=== PATIENT | male | born 1980 | race Caucasian/White ===

== ENCOUNTER 2023-11-23 12:14 | Emergency (ER) | payer SELFPAY ==
[2023-11-23 12:17] VITALS: BP 162/99
--- NOTE | 2023-11-23 12:50 | ED.GENMED ---
History of Present Illness
General
Chief Complaint: Prescription Refill
Source: patient
Exam Limitations: none
Time Seen by Provider: 11/23/23 12:41
Travel History
Have you had any contact with someone who has COVID-19?: No
Do you have any symptoms of coronavirus? Fever > 100 degrees, chills, cough, shortness of breath, sore throat, loss of taste or smell, muscle aches, or headache?: No
History of Present Illness
History of Present Illness:
See MDM
Past History
Past History
ED Past Medical History: Seizures
ED Past Surgical History: None
Social History
Tobacco: Non-smoker
Alcohol: None
Phy Exam
Physical Exam
Physical Exam:
See MDM
Course
Vital Signs
Initial and Last Documented VS:
Initial Vital Signs
Temp Pulse Resp BP Pulse Ox
98.9 F 99 16 162/99 98
11/23/23 12:17 11/23/23 12:17 11/23/23 12:17 11/23/23 12:17 11/23/23 12:17
Last Documented Vital Signs
Temp Pulse Resp BP Pulse Ox
98.9 F 99 16 162/99 98
11/23/23 12:17 11/23/23 12:17 11/23/23 12:17 11/23/23 12:17 11/23/23 12:17
MDM/Problems Addressed
Differential Diagnosis Includes:
HPI and MDM Narrative:
42-year-old male presenting for refill of his Klonopin and Depakote. Patient states he still has some pills left of each prescription but is running out soon. He called his primary care doctor who sent him into the emergency department. Patient
states he no longer has insurance
I did look up his information on the PDMP. He did fill 90 pills of Klonopin 26 days ago. It was a 30-day prescription. I discussed with patient that I can write a few more pills but this needs to be prescribed by his doctors.
Physical exam
General: Well appearing and non-toxic
HEENT: protecting airway
Neck: appears supple
CV: No evidence of cyanosis
Resp: No accessory muscle use
Abd: Non-distended
Extremities: No deformities
Neuro: alert
Psych: Normal affect
Skin: Intact
Problems Addressed including Acute and Chronic Conditions affecting care:
1. Medication refill
Acuity: acute
Prognosis: stable
Details: Will write for a 1 week more of Klonobethany and Depakosarbjit but discussed his chronic medications need to be filled by this provider. Since patient states he no longer has insurance, will refer to the [facility]
Differential Diagnosis (but not limited to): Anxiety, medication review
Testing considered: Blood work
Drug therapy (if applicable): OTC meds, please see d/c instruction regarding Rx drugs
Amount and/or Complexity of Data Reviewed
Clinical info obtained from: Patient
External data reviewed: N/A
Labs I independently reviewed (but not limited to): N/A
Radiology: N/A
Pulse Ox: not hypoxic
EKG independently reviewed: N/A
Industrial Conveyor Belt Repairer: N/A
Critical Care: N/A
Risk of Complication:
Social Determinants of health: Good social support
Discussed with other providers: N/A
Escalation of Care includes Admit/Obs: After being observed in the Emergency Department, pt stable for discharge.
Occasional wrong word or 'sound a like' substitutions may have occurred due to the inherent limitations of voice recognition software. Read the chart carefully and recognize, using context, where substitutions have occurred.
*Critical Care Note
Total Time (30-74mins, 75-104mins- exclusive of procedures): Not Applicable
ED Attending Note
-
Portions of this chart may have been created with voice recognition software.� Occasional wrong word or��sound alike� substitutions may have occurred due to the inherent limitations of voice recognition software.
Discharge Plan
Departure
Patient Disposition: Home (Routine Discharge)
Date of Disposition: 11/23/23
Time of Disposition: 12:55
Patient with high blood pressure during this ER visit?: Yes
Discharge Problem:
Medication refill
Instructions: BLOOD PRESSURE
Prescriptions:
New
clonazepam [Klonopin] 1 mg tablet
1.5 mg PO BID 7 Days Qty: 21 0RF
divalproex [Depakote ER] 500 mg tablet extended release 24 hr
500 mg PO DAILY 14 Days Qty: 14 0RF
Referrals:
[facility] [Outside]
NONE,* [Family Provider] -
Activity Restrictions/Additional Instructions:
Your chronic medication should be filled by your doctor. If your doctor cannot see you and you do not have insurance, please follow-up with the clinic.
Interventions
Interventions:
*ED COVID-19 Vaccine History Last Done: 11/23/23 12:17
Discharge Date and Time
Print Language: ICELANDIC
[2023-11-23 13:18] VITALS: BP 149/94
== END 2023-11-23 13:20 | disposition home or self-care (01) ==
LOC: EMR 12:14
PROVIDERS: EMERGENCY PHYSICIAN Student in an Organized Health Care Education/Training Program
DX: Z76.0 Encounter for issue of repeat prescription (principal); R03.0 Elevated blood-pressure reading, without diagnosis of hypertension
CPT/HCPCS: 99283

== ENCOUNTER 2024-03-16 16:59 | Emergency (ER) | payer SELFPAY ==
[2024-03-16 17:02] VITALS: BP 151/96; BMI 18.9
[2024-03-16 18:00] VITALS: BP 137/96
--- NOTE | 2024-03-16 18:14 | ED.GENMED ---
History of Present Illness
General
Chief Complaint: Anxiety
Source: patient
Time Seen by Provider: 03/16/24 18:02
History of Present Illness
History of Present Illness:
43-year-old male with past medical history of seizure disorder presenting to the emergency department for evaluation after he was recently released from group home last night but did not have any of his medications and was afraid that if he went without
his medications can potentially have a seizure. He is also stating that he had a seizure 2 days ago and is requesting some Tylenol for some generalized aches and pains. He denies any fevers or infectious symptoms. He notes that he does have
prescription at home for Trileptal and Depakote but due to an issue at his pharmacy was unable to these prescriptions today but state was told he can tomorrow. He states that he does not have a Klonopin prescription due to the loss of insurance but
is scheduled to see his doctor at the medical clinic within the coming week. He has no physical concerns at this time other than the generalized achiness.
Past History
Past History
ED Past Medical History: Seizures and Psychiatric
ED Past Surgical History: Orthopedic
Social History
Tobacco: Non-smoker
Alcohol: None
Drug: None
Personal: Partner
Living: with family
Employment: Not employed
Review of Systems
Review of Systems
All Other Systems: ROS reviewed and negative except as documented in HPI and ROS
Phy Exam
Physical Exam
Physical Exam:
GENERAL: Alert , in no apparent distress
EYE: conjunctiva clear
Head: Normocephalic atraumatic
NECK: Supple,
ENT: mmm.
LUNGS: no acute respiratory distress
NEUROLOGICAL: Alert and oriented
SKIN: Warm and dry, skin intact.
MUSCULOSKELETAL: well perfused.
PSYCH: Normal and appropriate interaction.
Scores
Heart Failure Risk
Heart Failure Risk Score: Not Applicable
Heart Score for Chest Pain Patients
STEMI patient?: Not applicable
Withdrawal Assessment of Alcohol
Withdrawal Assessment Completed?: Not applicable
Course
Orders/Labs/Results
Orders:
Orders
03/16/24 18:11
Acetaminophen [Tylenol] 650 mg PO NOW STA
Clonazepam [Klonopin] 0.5 mg PO NOW STA
Clonazepam [Klonopin] 1 mg PO NOW STA
03/16/24 18:21
Oxcarbazepine [Trileptal] 600 mg PO NOW STA
03/16/24 18:22
Divalproex Delayed Rel. 12 Hr [Depakote (12 Hr Release)] 500 mg PO NOW STA
Vital Signs
Initial and Last Documented VS:
Initial Vital Signs
Temp Pulse Resp BP Pulse Ox
98.2 F 70 16 151/96 99
03/16/24 17:02 03/16/24 17:02 03/16/24 17:02 03/16/24 17:02 03/16/24 17:02
Last Documented Vital Signs
Temp Pulse Resp BP Pulse Ox
98.2 F 60 16 137/96 100
03/16/24 17:02 03/16/24 18:00 03/16/24 18:00 03/16/24 18:00 03/16/24 18:00
MDM/Problems Addressed
MDM/Problems Addressed:
Patient presenting to the emergency department to be evaluated after he has been unable to take his medications since yesterday evening at 8 PM. Released from group home after he was served an arrest warrant. He notes that he has a prescription for his
Trileptal and Depakote. Noting he needs a prescription for Klonopin. [place] PDMP was reviewed and shows he last had a prescription filled in October for Klonopin which was filled here at this facility. I explained the patient I can only give him enough
to get him through the weekend and he can contact his primary care provider on Tuesday for new prescription. Patient expressed understanding. He is otherwise stable for discharge home.
*Pulse Oximetry
Patient hypoxic: no
*Critical Care Note
Total Time (30-74mins, 75-104mins- exclusive of procedures): Not Applicable
Data Reviewed
Review of Other/Old Records Reveals: Records
ED Attending Note
-
Portions of this chart may have been created with voice recognition software.� Occasional wrong word or��sound alike� substitutions may have occurred due to the inherent limitations of voice recognition software.
Discharge Plan
Departure
Patient Disposition: Home (Routine Discharge)
Date of Disposition: 03/16/24
Time of Disposition: 18:14
Patient with high blood pressure during this ER visit?: Yes
Discharge Problem:
Prescription refill
Instructions: Where to Get Help Paying for Your Prescriptions
Prescriptions:
New
clonazepam [Klonopin] 1 mg tablet
1 mg PO BID 3 Days Qty: 6 0RF
clonazepam [Klonopin] 0.5 mg tablet
0.5 mg PO BID 3 Days Qty: 6 0RF
No Action
clonazepam [Klonopin] 1 mg tablet
1.5 mg PO BID 7 Days Qty: 21 0RF
divalproex [Depakote ER] 500 mg tablet extended release 24 hr
500 mg PO DAILY 14 Days Qty: 14 0RF
Referrals:
NONE,* [Family Provider] -
Interventions
Interventions:
*Risk Screen - Suicide Last Done: 03/16/24 17:02
*General Assessment Last Done: 03/16/24 17:02
*Neglect/Abuse Screening Last Done: 03/16/24 17:02
ED- Fall Risk Assessment Last Done: 03/16/24 17:02
*ED COVID-19 Vaccine History Last Done: 03/16/24 17:43
ED-Psychological Assessment Last Done: 03/16/24 17:02
Discharge Date and Time
Print Language: ZAMBIAN
[2024-03-16] MEDS: KLONOPIN 1 MG PO (18:17)
[2024-03-16] MEDS: TYLENOL 650 MG PO (18:17)
[2024-03-16] MEDS: KLONOPIN 0.5 MG PO (18:17)
[2024-03-16] MEDS: DEPAKOTE (12 HR RELEASE) 500 MG PO (18:30)
[2024-03-16] MEDS: TRILEPTAL 600 MG PO (18:30)
== END 2024-03-16 18:30 | disposition home or self-care (01) ==
LOC: EMR 16:59
PROVIDERS: EMERGENCY PHYSICIAN Emergency Medicine
DX: Z76.0 Encounter for issue of repeat prescription (principal); G40.909 Epilepsy, unspecified, not intractable, without status epilepticus; F41.9 Anxiety disorder, unspecified; R03.0 Elevated blood-pressure reading, without diagnosis of hypertension
CPT/HCPCS: 99283

== ENCOUNTER 2024-05-10 12:11 | Emergency (ER) | payer OTHER, SELFPAY ==
[2024-05-10 12:13] VITALS: BP 167/110
[2024-05-10 12:39] VITALS: BMI 21.0
[2024-05-10 13:11] LABS: % Basophils 0.5 % (0-2); % Eosinophils 1.3 % (0-6); % Immature Granulocytes 0.4 % (0-0.5); % Lymphocytes 25.8 % (20.5-51.1); % Monocytes 7.3 % (1.7-9.3); % Neutrophils 64.7 % (42.2-75.2); Absolute Basophils 0.1 10^3/uL (0-0.2); Absolute Eosinophils 0.1 10^3/uL (0-0.7); Absolute Lymphocytes 2.4 10^3/uL (1.2-3.4); Absolute Monocytes 0.7 10^3/uL (0.1-0.6); Hematocrit 41.9 % (39.0-52.0); Hemoglobin 14.9 g/dL (13.0-18.0); Mean Corp Hgb Conc. 35.6 g/dL (33.0-37.0); Mean Corpuscular Hgb 35.1 pg (27.0-31.0); Mean Corpuscular Volume 98.8 fL (80.0-94.0); Mean Platelet Volume 9.6 fL (7.4-10.4); Nucleated Red Blood Cells % 0 % (-); Platelet Count 289 10^3/uL (130-400); Red Blood Cell Count 4.24 10^6/uL (4.70-6.10); Red Cell Dist. Width 12.5 % (11.5-14.5); White Blood Cell Count 9.3 10^3/uL (4.8-10.8)
--- NOTE | 2024-05-10 13:21 | ED.GENMED ---
History of Present Illness
General
Chief Complaint: Seizure
Source: patient
Exam Limitations: none
Time Seen by Provider: 05/10/24 12:39
History of Present Illness
History of Present Illness:
43-year-old male with history of epilepsy presents after having a seizure last evening. He states he is out of his medicine. He was here about a month ago for similar reasons. He is requesting information and help getting set up with the free
clinic. He does not currently have a neurologist. He used to live in [place] and recently moved here to this area. He has been taking Trileptal, Depakote and Klonopin for seizures. Last medicine was about 2 weeks ago. He denies any current
complaints other than fatigue. No other complaints
Past History
Past History
ED Past Medical History: Seizures and Psychiatric
ED Past Surgical History: Orthopedic
Social History
Tobacco: Non-smoker
Alcohol: None
Drug: None
Personal: Partner
Living: with family
Employment: Not employed
Phy Exam
Physical Exam
Physical Exam:
General: Well-appearing male no acute respiratory distress
HEENT: Normocephalic atraumatic no bite elizabeth to the tongue
Heart: Regular rate and rhythm no murmurs
Lungs: Clear no wheeze
Abdomen is soft nontender
Extremities: No cyanosis
Skin warm no rash
Course
Orders/Labs/Results
Orders:
Orders
05/10/24 12:49
CMP [Comprehensive Metabolic Panel] Urgent
Complete Blood Count/With Diff Urgent
Abnormal Lab Results
05/10/24
12:49
RBC 4.24 L 10^6/uL
(4.70-6.10)
MCV 98.8 H fL
(80.0-94.0)
MCH 35.1 H pg
(27.0-31.0)
Absolute Monos (auto) 0.7 H 10^3/uL
(0.1-0.6)
Creatinine 0.6 L mg/dL
(0.7-1.3)
Calcium 10.3 H mg/dl
(8.4-10.2)
Albumin 5.4 H g/dl
(3.5-5.0)
05/10/24 12:49
05/10/24 12:49
Vital Signs
Initial and Last Documented VS:
Initial Vital Signs
Temp Pulse Resp BP Pulse Ox
98.4 F 102 16 167/110 100
05/10/24 12:13 05/10/24 12:13 05/10/24 12:13 05/10/24 12:13 05/10/24 12:13
Last Documented Vital Signs
Temp Pulse Resp BP Pulse Ox
98.4 F 96 9 167/110 100
05/10/24 12:13 05/10/24 12:42 05/10/24 12:42 05/10/24 12:13 05/10/24 12:42
MDM/Problems Addressed
Differential Diagnosis Includes:
Patient had seizure last evening with history of seizures. He is out of his medication. He is in between doctors. Reviewed prior record. Will represcribe his Trileptal Depakote and give him a limited supply of Klonopin. Will set him up with the
free clinic. No indication for admission.
*Critical Care Note
Total Time (30-74mins, 75-104mins- exclusive of procedures): Not Applicable
Update Note
Update Note:
PDMP search does document the most recent prescription from February of this year from his visit here to this hospital. No other prescriptions of Klonopin have been provided.
ED Attending Note
-
Portions of this chart may have been created with voice recognition software.� Occasional wrong word or��sound alike� substitutions may have occurred due to the inherent limitations of voice recognition software.
Discharge Plan
Departure
Patient Disposition: Home (Routine Discharge)
Date of Disposition: 05/10/24
Time of Disposition: 13:43
Patient with high blood pressure during this ER visit?: No
Discharge Problem:
Seizure
Instructions: Seizures, Adult (DC)
Prescriptions:
New
divalproex [Depakote ER] 500 mg tablet extended release 24 hr
500 mg PO DAILY Qty: 14 0RF
oxcarbazepine [Trileptal] 600 mg tablet
600 mg PO BID Qty: 28 0RF
clonazepam [Klonopin] 1 mg tablet
1 mg PO BID Qty: 14 0RF
clonazepam [Klonopin] 0.5 mg tablet
0.5 mg PO BID Qty: 14 0RF
No Action
clonazepam [Klonopin] 1 mg tablet
1.5 mg PO BID 7 Days Qty: 21 0RF
divalproex [Depakote ER] 500 mg tablet extended release 24 hr
500 mg PO DAILY 14 Days Qty: 14 0RF
clonazepam [Klonopin] 1 mg tablet
1 mg PO BID 3 Days Qty: 6 0RF
clonazepam [Klonopin] 0.5 mg tablet
0.5 mg PO BID 3 Days Qty: 6 0RF
Referrals:
[facility] [Outside]
NONE,* [Family Provider] -
Activity Restrictions/Additional Instructions:
Please continue to seek treatment at the free [facility]. Return here if needed otherwise.
Interventions
Interventions:
*Risk Screen - Suicide Last Done: 05/10/24 12:39
*General Assessment Last Done: 05/10/24 12:39
*Neglect/Abuse Screening Last Done: 05/10/24 12:39
ED- Fall Risk Assessment Last Done: 05/10/24 12:39
*ED COVID-19 Vaccine History Last Done: 05/10/24 12:39
ED- Cardiac Assessment Last Done: 05/10/24 12:39
ED- Neurological Assessment Last Done: 05/10/24 12:39
ED- Pulmonary Assessment Last Done: 05/10/24 12:39
Discharge Date and Time
Print Language: TAJIK
[2024-05-10 13:27] LABS: ALT (SGPT) 13 U/L (0-50); AST (SGOT) 21 U/L (17-59); Albumin 5.4 g/dl (3.5-5.0); Alkaline Phosphatase 64 U/L (38-126); Blood Urea Nitrogen 14 mg/dl (9-20); Calcium 10.3 mg/dl (8.4-10.2); Carbon Dioxide 27 mmol/L (22-30); Chloride 100 mmol/L (98-107); Estimated Creatinine Clearance > 125 ml/min; Glucose 99 mg/dl (70-99); Potassium 4.5 mmol/L (3.5-5.1); Sodium 140 mmol/L (135-145); Total Bilirubin 0.5 mg/dl (0.2-1.3); Total Protein 7.9 g/dl (6.3-8.2); eGFR > 60.00
== END 2024-05-10 14:05 | disposition home or self-care (01) ==
LOC: EMR 12:11
PROVIDERS: Physician Assistant; EMERGENCY PHYSICIAN Emergency Medicine
DX: G40.909 Epilepsy, unspecified, not intractable, without status epilepticus (principal); Z76.0 Encounter for issue of repeat prescription
CPT/HCPCS: 99283; 80053; 85025

== ENCOUNTER 2024-05-11 21:31 | Emergency (ER) | payer OTHER, SELFPAY ==
[2024-05-11 21:36] VITALS: BP 136/81
[2024-05-11 21:54] LABS: % Basophils 0.4 % (0-2); % Eosinophils 1.8 % (0-6); % Immature Granulocytes 0.4 % (0-0.5); % Lymphocytes 30.7 % (20.5-51.1); % Monocytes 9.1 % (1.7-9.3); % Neutrophils 57.6 % (42.2-75.2); Absolute Eosinophils 0.2 10^3/uL (0-0.7); Absolute Lymphocytes 3.3 10^3/uL (1.2-3.4); Absolute Neutrophils 6.3 10^3/uL (1.4-6.5); Hematocrit 39.1 % (39.0-52.0); Hemoglobin 13.9 g/dL (13.0-18.0); Mean Corp Hgb Conc. 35.5 g/dL (33.0-37.0); Mean Corpuscular Hgb 33.8 pg (27.0-31.0); Mean Corpuscular Volume 95.1 fL (80.0-94.0); Mean Platelet Volume 9.4 fL (7.4-10.4); Nucleated Red Blood Cells % 0 % (-); Platelet Count 291 10^3/uL (130-400); Red Blood Cell Count 4.11 10^6/uL (4.70-6.10); Red Cell Dist. Width 12.5 % (11.5-14.5); White Blood Cell Count 10.9 10^3/uL (4.8-10.8)
[2024-05-11 22:08] LABS: Lactic Acid 2.1 mmol/L (0.7-2.0)
[2024-05-11 22:20] LABS: ALT (SGPT) 12 U/L (0-50); AST (SGOT) 19 U/L (17-59); Albumin 4.8 g/dl (3.5-5.0); Alkaline Phosphatase 66 U/L (38-126); Blood Urea Nitrogen 16 mg/dl (9-20); Calcium 9.9 mg/dl (8.4-10.2); Carbon Dioxide 28 mmol/L (22-30); Chloride 100 mmol/L (98-107); Glucose 94 mg/dl (70-99); Potassium 4.3 mmol/L (3.5-5.1); Sodium 138 mmol/L (135-145); Total Bilirubin 0.4 mg/dl (0.2-1.3); eGFR > 60.00
--- NOTE | 2024-05-11 23:05 | ED.GENMED ---
History of Present Illness
General
Chief Complaint: Facial Problem
Source: patient
Time Seen by Provider: 05/11/24 22:55
History of Present Illness
History of Present Illness:
43-year-old male with past medical history of seizure disorder, anxiety and depression presenting to the emergency department for evaluation of left-sided otalgia that began yesterday, worse today prompting him to come to the ER for further
evaluation. Patient notes that he was here yesterday with a breakthrough seizure, had been out of his epileptic medications due to a recent move and currently does not have a primary care doctor or neurologist to get new prescription filled.
Patient denies any fevers, chills, rigors. Denies any other URI-like symptoms. He notes it feels as if his left ear is 'about to explode'. He attempted to clean his left ear out with a little hydrogen peroxide but did not have any relief. Denies
any trauma to the affected area. No other concerns presently.
Past History
Past History
ED Past Medical History: Seizures and Psychiatric
ED Past Surgical History: Orthopedic
Social History
Tobacco: Non-smoker
Alcohol: None
Drug: None
Personal: Partner
Living: with family
Employment: Not employed
Review of Systems
Review of Systems
All Other Systems: ROS reviewed and negative except as documented in HPI and ROS
Phy Exam
Physical Exam
Physical Exam:
GENERAL: Alert , in no apparent distress
HEAD: NCAT
EYE: conjunctiva clear
NECK: Supple, enlarged preauricular and superficial cervical chain lymphadenopathy
ENT: o/p clr, mmm. Left otic canal is edematous but without any significant debris. What I can visualize of the TM is erythematous. Right ear no edema of the otic canal and TM is clear
CARDIAC: Regular rate and rhythm
LUNGS: Clear breath sounds bilaterally, no acute respiratory distress, no wheezes/rales/rhonchi
NEUROLOGICAL: Alert and oriented
SKIN: Warm and dry, skin intact.
MUSCULOSKELETAL: well perfused.
PSYCH: Normal and appropriate interaction.
Scores
Heart Failure Risk
Heart Failure Risk Score: Not Applicable
Heart Score for Chest Pain Patients
STEMI patient?: Not applicable
Withdrawal Assessment of Alcohol
Withdrawal Assessment Completed?: Not applicable
Course
Orders/Labs/Results
Orders:
Orders
05/11/24 21:45
Complete Blood Count/With Diff Urgent
Comprehensive Metabolic Panel Urgent
Lactic Acid Urgent
05/11/24 23:03
Amoxicillin [Amoxil] 500 mg PO NOW STA
Ibuprofen [Motrin] 600 mg PO NOW STA
Abnormal Lab Results
05/11/24
21:45
WBC 10.9 H 10^3/uL
(4.8-10.8)
RBC 4.11 L 10^6/uL
(4.70-6.10)
MCV 95.1 H fL
(80.0-94.0)
MCH 33.8 H pg
(27.0-31.0)
Absolute Monos (auto) 1.0 H 10^3/uL
(0.1-0.6)
Lactic Acid 2.1 H mmol/L
(0.7-2.0)
05/11/24 21:45
05/11/24 21:45
Vital Signs
Initial and Last Documented VS:
Initial Vital Signs
Temp Pulse Resp BP Pulse Ox
98.3 F 111 20 136/81 99
05/11/24 21:36 05/11/24 21:36 05/11/24 21:36 05/11/24 21:36 05/11/24 21:36
Last Documented Vital Signs
Temp Pulse Resp BP Pulse Ox
98.3 F 111 20 136/81 99
05/11/24 21:36 05/11/24 21:36 05/11/24 21:36 05/11/24 21:36 05/11/24 21:36
MDM/Problems Addressed
Differential Diagnosis Includes:
otitis media, otitis externa, mastoiditis, abscess
MDM/Problems Addressed:
43-year-old male presenting the emergency department for evaluation of left ear pain x 1 day. Was at this hospital yesterday with a breakthrough seizure because patient unfortunately did not have his antiepileptic medications. Here tonight patient
does have significant left-sided otic canal edema and left TM erythema. There is preauricular and anterior cervical chain lymphadenopathy. Labs were ordered in triage which reveals a leukocytosis. Patient also has a borderline elevated lactic
acid which could be related to patient's seizure disorder, could also be related to infection however patient not exhibiting any signs of sepsis. I do feel it is reasonable to treat patient's pain with NSAIDs. Will treat infection with amoxicillin
and Cortisporin drops. Advised on return precautions to the ER. Otherwise feels stable for discharge home. Patient currently does not have a primary care provider so we will provide with information for the medical clinic
*Pulse Oximetry
Patient hypoxic: no
*Critical Care Note
Total Time (30-74mins, 75-104mins- exclusive of procedures): Not Applicable
Data Reviewed
Review of Other/Old Records Reveals: Records
ED Attending Note
-
Portions of this chart may have been created with voice recognition software.� Occasional wrong word or��sound alike� substitutions may have occurred due to the inherent limitations of voice recognition software.
Discharge Plan
Departure
Patient Disposition: Home (Routine Discharge)
Date of Disposition: 05/11/24
Time of Disposition: 23:05
Patient with high blood pressure during this ER visit?: No
Discharge Problem:
Otitis media, Otitis externa
Instructions: Ear Infections in Adults (DC)
Prescriptions:
New
amoxicillin 500 mg tablet
500 mg PO BID 10 Days Qty: 20 0RF
Cortisporin-TC 3.3-3-10-0.5 mg/mL drops,suspension
4 drp otic (ear) TID 7 Days Qty: 10 0RF
No Action
clonazepam [Klonopin] 1 mg tablet
1.5 mg PO BID 7 Days Qty: 21 0RF
divalproex [Depakote ER] 500 mg tablet extended release 24 hr
500 mg PO DAILY 14 Days Qty: 14 0RF
clonazepam [Klonopin] 1 mg tablet
1 mg PO BID 3 Days Qty: 6 0RF
clonazepam [Klonopin] 0.5 mg tablet
0.5 mg PO BID 3 Days Qty: 6 0RF
divalproex [Depakote ER] 500 mg tablet extended release 24 hr
500 mg PO DAILY Qty: 14 0RF
oxcarbazepine [Trileptal] 600 mg tablet
600 mg PO BID Qty: 28 0RF
clonazepam [Klonopin] 1 mg tablet
1 mg PO BID Qty: 14 0RF
clonazepam [Klonopin] 0.5 mg tablet
0.5 mg PO BID Qty: 14 0RF
Referrals:
[facility] [Outside]
NONE,* [Family Provider] -
Interventions
Interventions:
*Risk Screen - Suicide Last Done: 05/11/24 22:55
*General Assessment Last Done: 05/11/24 21:36
*Neglect/Abuse Screening Last Done: 05/11/24 22:55
*ED COVID-19 Vaccine History Last Done: 05/11/24 22:55
*Nursing Disposition Last Done: 05/11/24 23:23
ED- Neurological Assessment Last Done: 05/11/24 22:55
ED-Skin Assessment Last Done: 05/11/24 22:55
Discharge Date and Time
Discharge Date/Time: 05/11/24 23:24
Print Language: MOROCCAN
[2024-05-11] MEDS: MOTRIN 600 MG PO (23:15)
[2024-05-11] MEDS: AMOXIL 500 MG PO (23:16)
== END 2024-05-11 23:24 | disposition home or self-care (01) ==
LOC: EMR 21:31
PROVIDERS: Emergency Medicine; EMERGENCY PHYSICIAN Emergency Medicine
DX: H66.92 Otitis media, unspecified, left ear (principal); H60.502 Unspecified acute noninfective otitis externa, left ear; R59.0 Localized enlarged lymph nodes; G40.909 Epilepsy, unspecified, not intractable, without status epilepticus; F41.9 Anxiety disorder, unspecified; F32.A Depression, unspecified; Z88.8 Allergy status to other drugs, medicaments and biological substances
CPT/HCPCS: 99283; 80053; 83605; 85025

== ENCOUNTER 2024-05-15 05:34 | Emergency (ER) | payer OTHER, SELFPAY ==
[2024-05-15 05:36] VITALS: BP 158/100
[2024-05-15 05:52] VITALS: BMI 21.9
[2024-05-15 06:01] VITALS: BP 140/98
[2024-05-15 06:37] VITALS: BP 127/97
[2024-05-15 06:52] LABS: % Basophils 0.5 % (0-2); % Eosinophils 2.1 % (0-6); % Immature Granulocytes 0.4 % (0-0.5); % Lymphocytes 20.2 % (20.5-51.1); % Monocytes 6.9 % (1.7-9.3); % Neutrophils 69.9 % (42.2-75.2); Absolute Eosinophils 0.2 10^3/uL (0-0.7); Absolute Lymphocytes 1.6 10^3/uL (1.2-3.4); Absolute Monocytes 0.6 10^3/uL (0.1-0.6); Absolute Neutrophils 5.7 10^3/uL (1.4-6.5); Hematocrit 36.7 % (39.0-52.0); Hemoglobin 12.9 g/dL (13.0-18.0); Mean Corp Hgb Conc. 35.1 g/dL (33.0-37.0); Mean Corpuscular Hgb 33.5 pg (27.0-31.0); Mean Corpuscular Volume 95.3 fL (80.0-94.0); Mean Platelet Volume 9.3 fL (7.4-10.4); Nucleated Red Blood Cells % 0 % (-); Platelet Count 252 10^3/uL (130-400); Red Blood Cell Count 3.85 10^6/uL (4.70-6.10); Red Cell Dist. Width 12.6 % (11.5-14.5); White Blood Cell Count 8.1 10^3/uL (4.8-10.8)
[2024-05-15 07:00] VITALS: BP 138/100
[2024-05-15 07:04] LABS: Lactic Acid 1.8 mmol/L (0.7-2.0)
[2024-05-15 07:05] LABS: ALT (SGPT) 13 U/L (0-50); AST (SGOT) 19 U/L (17-59); Albumin 4.4 g/dl (3.5-5.0); Alkaline Phosphatase 66 U/L (38-126); Blood Urea Nitrogen 9 mg/dl (9-20); Calcium 9.6 mg/dl (8.4-10.2); Carbon Dioxide 24 mmol/L (22-30); Chloride 106 mmol/L (98-107); Creatine Phosphokinase 115 U/L (55-170); Estimated Creatinine Clearance > 125 ml/min; Glucose 116 mg/dl (70-99); Potassium 3.9 mmol/L (3.5-5.1); Sodium 140 mmol/L (135-145); Total Bilirubin 0.3 mg/dl (0.2-1.3); Total Protein 6.5 g/dl (6.3-8.2); eGFR > 60.00
[2024-05-15 07:06] LABS: Alcohol None Detected
[2024-05-15 07:09] LABS: Depakane < 10.0 ug/ml (50.0-120.0)
[2024-05-15] MEDS: NSS 1000 IV (07:23)
--- NOTE | 2024-05-15 07:24 | ED.GENMED ---
History of Present Illness
General
Chief Complaint: Seizure
Source: patient
Exam Limitations: none
Time Seen by Provider: 05/15/24 06:06
Nursing documentation reviewed up to this point in time: agreed with
History of Present Illness
History of Present Illness:
43-year-old male with a past medical history of epilepsy and anxiety who presents to the emergency room after 2 apparent witnessed seizures. Patient says that he tends to have his seizures when he is sleeping. He says that his girlfriend told him
that he had to tonic-clonic seizures last night 1 at 230 that was brief and resolved and then another at 3 AM. He was apparently quite confused/postictal after these episodes�he says that his girlfriend told him that he was confused to the point
that he was eating soap in the bathroom. He says that he has had a long history of seizures and so he did not immediately call EMS to bring her to the hospital but waited until he was more awake and that took an Uber to the hospital. He says that
he feels lethargic still and he has generalized bodyaches but denies any other complaints. Denies any headache. Denies any weakness or numbness in extremities. He denies any change in his vision. Denies any chest pain, shortness of breath or any
other issues. He unfortunately has had issues with insurance; he does not have a neurologist and has been essentially receiving all of his care through various emergency departments. Initially was receiving care in [place] and then moved to [place] about a year ago. He was here in this emergency room in March for seizures, multiple times before this for medication refills; he has been referred to our outpatient clinic to establish care with a neurologist and he says he has not
yet been able to establish care there. He is currently working on obtaining insurance through a job for which he was recently hired. He is prescribed multiple antiepileptic drugs�he says that these were prescribed while he was living in [facility]. He says that initially he was on Keppra and this did not control his seizures adequately and then he was switched to Trileptal 600 mg twice daily about 2 years ago; about a year ago they added Depakote at a dose of 500 mg p.o. daily. He
says that he was then started on Klonopin initially at a dose of 2 mg 3 times daily but since then has been decreased to a dose of 1.5 mg twice daily. He reports that he has been compliant with the Klonopin but he says that for the past month he
has been noncompliant with Trileptal and Depakote 'because they do not work and I did not like the side effects.' He states that he was having significant mood swings and he was still having seizures despite treatment with them.
Past History
Past History
ED Past Medical History: Seizures and Psychiatric
ED Past Surgical History: Orthopedic
Social History
Tobacco: Non-smoker
Alcohol: None
Drug: None
Personal: Partner
Living: with family
Employment: Not employed
Review of Systems
Review of Systems
All Other Systems: ROS reviewed and negative except as documented in HPI and ROS
Constitutional: Reports fatigue; Denies fever or chills
Respiratory: Denies trouble breathing
Cardiac: Denies chest pain
ABD/GI: Denies abdominal pain, nausea or vomiting
: Denies flank pain
Musculoskeletal: Reports muscle pain (Myalgias); Denies neck pain or back pain
Neurological: Reports other (Seizure); Denies dizzy, headache, weakness or numbness
Phy Exam
Physical Exam
Physical Exam:
General: Awake, alert, oriented x3; no acute distress
Head: Normocephalic, atraumatic
Eyes: Patient has strabismus left eye at baseline; conjunctiva normal, EOMI, pupils equal round and reactive to light bilaterally
Throat: Airway intact, handling secretions; tongue appears atraumatic
Neck: Trachea midline, supple without meningismus
Lungs: Clear to auscultation bilaterally, no wheezing, rales, rhonchi
Heart: Regular rate and rhythm, no murmurs, gallops, or rubs
Abd: Soft, non distended, nontender
Neuro: Cranial nerves intact, speech fluid no dysarthria or aphasia, motor and sensory function intact in all extremities
Skin: no rash
Extremities: Warm and well-perfused with good pulses, no edema
Scores
Heart Failure Risk
Heart Failure Risk Score: Not Applicable
Heart Score for Chest Pain Patients
STEMI patient?: Not applicable
Withdrawal Assessment of Alcohol
Withdrawal Assessment Completed?: Not applicable
Course
Orders/Labs/Results
Orders:
Orders
05/15/24 06:07
Electrocardiogram (*1) Urgent
Reason for Study: Other
Other Reason for Exam: seizure
EKG- Treatment ONCE
05/15/24 06:44
Alcohol Urgent
CPK [Creatine Phosphokinase] Urgent
Complete Blood Count/With Diff Urgent
Comprehensive Metabolic Panel Urgent
Lactate Level [Lactic Acid] Urgent
Valproic Acid Level [Depakane] Urgent
05/15/24 06:49
Drug Screen, Urine [Urine Drug Abuse Screen] Urgent
Date Specimen was Collected: 05/15/24
Time Specimen was Collected: 06:47
05/15/24 06:53
0.9% Sodium Chloride 1000 ml [Nss] 1,000 ml IV BOLUS
05/15/24 06:59
NEUROLOGY CONSULT Urgent
Consulting Provider: Fam Medellin
Was physician already notified: Yes
Abnormal Lab Results
05/15/24 05/15/24
06:44 06:49
RBC 3.85 L 10^6/uL
(4.70-6.10)
Hgb 12.9 L g/dL
(13.0-18.0)
Hct 36.7 L %
(39.0-52.0)
MCV 95.3 H fL
(80.0-94.0)
MCH 33.5 H pg
(27.0-31.0)
Lymphocytes % 20.2 L %
(20.5-51.1)
Creatinine 0.6 L mg/dL
(0.7-1.3)
Glucose 116 H mg/dl
(70-99)
Valproic Acid < 10.0 L ug/ml
(50.0-120.0)
U Marijuana (THC) Screen Positive H
(Negative)
05/15/24 06:44
05/15/24 06:44
Vital Signs
Initial and Last Documented VS:
Initial Vital Signs
Temp Pulse Resp BP Pulse Ox
36.6 C 94 22 158/100 100
05/15/24 05:36 05/15/24 05:36 05/15/24 05:36 05/15/24 05:36 05/15/24 05:36
Last Documented Vital Signs
Temp Pulse Resp BP Pulse Ox
36.6 C 63 12 135/100 98
05/15/24 05:36 05/15/24 08:15 05/15/24 08:15 05/15/24 08:00 05/15/24 08:15
MDM/Problems Addressed
Differential Diagnosis Includes:
Seizure disorder
MDM/Problems Addressed:
43-year-old male with past medical history of epilepsy presents to the emergency room after witnessed seizures�girlfriend witnessed tonic-clonic seizures this morning, he had postictal period which he feels is improving although he still has mild
lethargy. Has been prescribed Depakote, Trileptal, Klonopin for seizure control�noncompliant with Trileptal and Depakote x 1 month. He does not have any outpatient care, has been referred to our free clinic but has not establish care there. He is
currently uninsured/underinsured (says that he does have some coverage but cannot afford co-pays for specialty visits) although working on obtaining insurance through a job for which she was recently hired and anticipates being able to see a
neurologist at that point. Hypertensive in triage normalized by my assessment. Physical exam as above. Check labs including a CBC and a CMP, CPK, lactate. Check drug screen, Depakote level, alcohol level. Check an EKG. Case discussed with
neurology for assessment for recommendations regarding AEDs�while he has been noncompliant he reports that this is because he has been having breakthrough seizures despite treatment with these meds and he did not feel the utility in taking them and
suffering through side effects (he says that he was having severe mood swings) when they were not having an effect.
Labs reviewed: CBC shows marginal anemia, CMP no clinically significant abnormalities. Neurology evaluated at bedside�recommended increasing dose of Klonopin to 2 mg twice daily. Reinforced recommendation for compliance with Trileptal and
Depakote. He will need close outpatient follow-up for his seizure and for chronic management of his medications�has essentially been receiving all of his care for emergency room due to his insurance issues. He indicated that he is recently
employed and is working on filing for insurance through his employer. I did consult case management to see him in the ER and provide some help with obtaining insurance. Will refer him for a new primary care physician through our PCP referral line.
Indicated that he needs to call to schedule follow-up appointment with neurology. In the short-term we will prescribe 2 weeks worth of increased Klonopin dose given poor outpatient access at present but explained to him that he is responsible for
following through on follow-up plan to manage his health and that he cannot be managing these issues exclusively out of the emergency department. He indicated understanding. All questions answered.
Chronic conditions affecting care:
Epilepsy
Acute Exacerbation and/or Progression of Chronic Illness:
Acutely hypertensive resolved without intervention continue to monitor but no additional hypertensives indicated at present
Acute Exacerbation and/or Progression of Chronic Illness: HTN
*Pulse Oximetry
Patient hypoxic: no
*EKG
Interpreted by ED Provider?: Yes
Heart Rate: 83
Rate: normal
Rhythm: sinus
[place]: normal axis
Interval: normal interval
QRS Pattern: normal QRS
Ischemia: non-specific ST changes
*Critical Care Note
Total Time (30-74mins, 75-104mins- exclusive of procedures): Not Applicable
Data Reviewed
Review of Other/Old Records Reveals: Labs and Records
Source: patient and records
Patient Management
Social determinants of health affecting care: Financial situation and Poor outpatient follow-up
Discussion with other providers: Pulp Grinder (Discussed with neurology) and Other (Discussed with case management)
ED Attending Note
-
Portions of this chart may have been created with voice recognition software.� Occasional wrong word or��sound alike� substitutions may have occurred due to the inherent limitations of voice recognition software.
Discharge Plan
Departure
Patient Disposition: Home (Routine Discharge)
Date of Disposition: 05/15/24
Time of Disposition: 08:41
Patient with high blood pressure during this ER visit?: Yes
Discharge Problem:
Seizure
Instructions: Seizures, Adult (DC)
Prescriptions:
New
clonazepam [Klonopin] 2 mg tablet
2 mg PO BID Qty: 30 0RF
Discontinued
clonazepam [Klonopin] 1 mg tablet
1.5 mg PO BID 7 Days Qty: 21 0RF
divalproex [Depakote ER] 500 mg tablet extended release 24 hr
500 mg PO DAILY 14 Days Qty: 14 0RF
clonazepam [Klonopin] 1 mg tablet
1 mg PO BID 3 Days Qty: 6 0RF
clonazepam [Klonopin] 0.5 mg tablet
0.5 mg PO BID 3 Days Qty: 6 0RF
clonazepam [Klonopin] 1 mg tablet
1 mg PO BID Qty: 14 0RF
clonazepam [Klonopin] 0.5 mg tablet
0.5 mg PO BID Qty: 14 0RF
amoxicillin 500 mg tablet
500 mg PO BID 10 Days Qty: 20 0RF
No Action
divalproex [Depakote ER] 500 mg tablet extended release 24 hr
500 mg PO DAILY Qty: 14 0RF
oxcarbazepine [Trileptal] 600 mg tablet
600 mg PO BID Qty: 28 0RF
Cortisporin-TC 3.3-3-10-0.5 mg/mL drops,suspension
4 drp otic (ear) TID 7 Days Qty: 10 0RF
Referrals:
Fam Medellin MD [Active] - Call in 1-3 days for appt (Call for ED follow up appointment)
Activity Restrictions/Additional Instructions:
You should call to schedule ER follow-up appointment with neurology�they will see in the office after ER visit. You should call first thing tomorrow morning to schedule an appointment as soon as possible to establish care. You have also been
referred to establish care with a primary care physician�you should receive a call within the next few days to schedule an appointment with a new primary provider. In the meantime you should take your medications as prescribed and recommended by
the neurologist here in the ER.
Thank you for visiting the Emergency Department at [facility].
1. Please schedule a follow up appointment as directed. Call first thing tomorrow morning to make an appointment.
2. If indicated, please take your medications as instructed and indicated on discharge paperwork.
3. If any of your symptoms do not improve, or persist, or become more severe within 6-12 hours, please return to the emergency department for further care.
4. Please return to the emergency department if you develop a headache, neck pain/stiffness, fever greater than 100.4F, chest pain, shortness of breath, persistent nausea, vomiting, slurred speech, difficulty walking, numbness/tingling, weakness,
signs of infection or any other symptoms that are worrisome to you.
Please call [phone] if you have any questions.
Interventions
Interventions:
*Risk Screen - Suicide Last Done: 05/15/24 05:36
*General Assessment Last Done: 05/15/24 05:52
*Neglect/Abuse Screening Last Done: 05/15/24 05:36
ED- Fall Risk Assessment Last Done: 05/15/24 05:52
*ED COVID-19 Vaccine History Last Done: 05/15/24 05:52
ED- Cardiac Assessment Last Done: 05/15/24 05:52
ED- Neurological Assessment Last Done: 05/15/24 05:52
ED- Pulmonary Assessment Last Done: 05/15/24 05:52
Discharge Date and Time
Print Language: ROMANIAN
[2024-05-15 07:32] LABS: Amphetamines Negative (Negative); Barbiturates Negative (Negative)
[2024-05-15 07:33] LABS: Benzodiazepines Negative (Negative); Buprenorphine Negative (Negative); Cocaine Negative (Negative); Marijuana Positive (Negative); Methadone Negative (Negative); Methamphetamines Negative (Negative); Opiates Negative (Negative); Phencyclidine Negative (Negative); Tricyclic Antidepressants Negative (Negative)
[2024-05-15 08:00] VITALS: BP 135/100
--- NOTE | 2024-05-15 09:19 | CM ---
Cm spoke with patient. Patient confirmed that is medicaid is active and he will also have resources available when he starts working next week. Patient is aware of the Residency clinic. CM provided written information on clinic. Patient stated
that he plans to call his insurance to find a neurologist that is in network. He also stated that he will now have funding for transportation.
CM encouraged patient to call Medicaid plan and request case management services.
CM updated ED MD>
== END 2024-05-15 10:13 | disposition home or self-care (01) ==
LOC: EMR 05:34
PROVIDERS: CONSULT PHYSICIAN Psychiatry & Neurology Neurology; EMERGENCY PHYSICIAN Emergency Medicine
DX: G40.909 Epilepsy, unspecified, not intractable, without status epilepticus (principal); F41.9 Anxiety disorder, unspecified; Z91.148 Patient's other noncompliance with medication regimen for other reason; F32.A Depression, unspecified; Z88.8 Allergy status to other drugs, medicaments and biological substances
CPT/HCPCS: 99284; 96360; 80053; 80164; 80306; 82077; 82550; 83605; 85025; 93005

== ENCOUNTER 2024-05-22 17:32 | Emergency (ER) | payer OTHER, MEDICAID, SELFPAY ==
[2024-05-22 17:34] VITALS: BP 129/89
[2024-05-22 17:47] LABS: % Basophils 0.7 % (0-2); % Eosinophils 2.3 % (0-6); % Immature Granulocytes 0.3 % (0-0.5); % Lymphocytes 37.5 % (20.5-51.1); % Monocytes 9.3 % (1.7-9.3); % Neutrophils 49.9 % (42.2-75.2); Absolute Eosinophils 0.1 10^3/uL (0-0.7); Absolute Lymphocytes 2.3 10^3/uL (1.2-3.4); Absolute Monocytes 0.6 10^3/uL (0.1-0.6); Absolute Neutrophils 3.1 10^3/uL (1.4-6.5); Hematocrit 38.8 % (39.0-52.0); Hemoglobin 13.7 g/dL (13.0-18.0); Mean Corp Hgb Conc. 35.3 g/dL (33.0-37.0); Mean Corpuscular Hgb 33.6 pg (27.0-31.0); Mean Corpuscular Volume 95.1 fL (80.0-94.0); Mean Platelet Volume 9.2 fL (7.4-10.4); Nucleated Red Blood Cells % 0 % (-); Platelet Count 277 10^3/uL (130-400); Red Blood Cell Count 4.08 10^6/uL (4.70-6.10); Red Cell Dist. Width 12.4 % (11.5-14.5); White Blood Cell Count 6.1 10^3/uL (4.8-10.8)
[2024-05-22 18:13] LABS: ALT (SGPT) 14 U/L (0-50); AST (SGOT) 23 U/L (17-59); Albumin 4.6 g/dl (3.5-5.0); Alkaline Phosphatase 70 U/L (38-126); Blood Urea Nitrogen 5 mg/dl (9-20); Calcium 9.4 mg/dl (8.4-10.2); Carbon Dioxide 24 mmol/L (22-30); Chloride 107 mmol/L (98-107); Glucose 90 mg/dl (70-99); Potassium 4.2 mmol/L (3.5-5.1); Sodium 141 mmol/L (135-145); Total Bilirubin 0.4 mg/dl (0.2-1.3); Total Protein 6.9 g/dl (6.3-8.2); eGFR > 60.00
--- NOTE | 2024-05-22 18:24 | ED.GENMED ---
History of Present Illness
General
Chief Complaint: Seizure
Source: patient
Exam Limitations: none
Time Seen by Provider: 05/22/24 18:19
History of Present Illness
History of Present Illness:
See MDM
Past History
Past History
ED Past Medical History: Seizures and Psychiatric
ED Past Surgical History: Orthopedic
Social History
Tobacco: Non-smoker
Alcohol: None
Drug: None
Personal: Partner
Living: with family
Employment: Not employed
Phy Exam
Physical Exam
Physical Exam:
See MDM
Course
Orders/Labs/Results
Orders:
Orders
05/22/24 17:38
CR Shoulder, Trauma - Left Urgent
Comment:
Reason For Exam: pain
05/22/24 17:42
CMP [Comprehensive Metabolic Panel] Urgent
Complete Blood Count/With Diff Urgent
05/22/24 18:23
Case Management Consult ONCE
Case Management Consult: Discharge Planning
Oxycodone/Acetaminophen [Percocet 5/325] 1 tablet PO NOW STA
Abnormal Lab Results
05/22/24
17:42
RBC 4.08 L 10^6/uL
(4.70-6.10)
Hct 38.8 L %
(39.0-52.0)
MCV 95.1 H fL
(80.0-94.0)
MCH 33.6 H pg
(27.0-31.0)
BUN 5 L mg/dl
(9-20)
05/22/24 17:42
05/22/24 17:42
Vital Signs
Initial and Last Documented VS:
Initial Vital Signs
Temp Pulse Resp BP Pulse Ox
98.3 F 97 16 129/89 98
05/22/24 17:34 05/22/24 17:34 05/22/24 17:34 05/22/24 17:34 05/22/24 17:34
Last Documented Vital Signs
Temp Pulse Resp BP Pulse Ox
98.3 F 78 18 134/96 99
05/22/24 17:34 05/22/24 18:44 05/22/24 18:44 05/22/24 18:44 05/22/24 18:44
MDM/Problems Addressed
Differential Diagnosis Includes:
HPI and MDM Narrative:
43-year-old male presenting for breakthrough seizures. Patient states his girlfriend told him that he had another seizure. I question his compliance to Depakote and Trileptal. Patient states he cannot tolerate his medicines due to side effects
and believes he had more breakthrough seizures while taking them. He states his seizures are better controlled with Klonopin only. He was seen in the emergency department recently and his Klonopin was increased. Patient states he is having
trouble following up with neurology and wants to speak to case management. Patient also complained of left shoulder pain but denies numbness or tingling
Blood work and shoulder x-ray done prior to my evaluation and all within normal limits
Physical exam
General: Well appearing and non-toxic
HEENT: protecting airway
Neck: appears supple
CV: No evidence of cyanosis
Resp: No accessory muscle use
Abd: Non-distended
Extremities: No deformities. Mild tenderness to left anterior shoulder without neurodeficits or muscle weakness. Distal pulses intact
Neuro: alert
Psych: Normal affect
Skin: Intact
Problems Addressed including Acute and Chronic Conditions affecting care:
1. Breakthrough seizures
Acuity: acute
Prognosis: stable
Details: Patient takes Klonopin only. He does not require any new change or more pills. Patient is more concerned about seeing a neurologist as an outpatient.
2. Shoulder pain
Acuity: acute
Prognosis: stable
Details: No clinical evidence of dislocation. X-rays negative for fracture. Discussed likely muscle strain
Updates
Case management had left for the day. However, they will be able to evaluate the consult order and reach out to him. Patient given information about the family medicine residency clinic
Differential Diagnosis (but not limited to): Breakthrough seizures, shoulder dislocation, medication noncompliance
Testing considered: CT head but he has no focal deficits and is not postictal
Drug therapy (if applicable): OTC meds, please see d/c instruction regarding Rx drugs
Amount and/or Complexity of Data Reviewed
Clinical info obtained from: Patient
External data reviewed: N/A
Labs I independently reviewed (but not limited to): White blood cell count normal
Radiology: X-ray independently reviewed: Shoulder x-ray without evidence of fracture or dislocation
Pulse Ox: not hypoxic
EKG independently reviewed: N/A
Executive Chef: N/A
Critical Care: N/A
Risk of Complication:
Social Determinants of health: Good social support
Discussed with other providers: N/A
Escalation of Care includes Admit/Obs: After being observed in the Emergency Department, pt stable for discharge.
Occasional wrong word or 'sound a like' substitutions may have occurred due to the inherent limitations of voice recognition software. Read the chart carefully and recognize, using context, where substitutions have occurred.
*Critical Care Note
Total Time (30-74mins, 75-104mins- exclusive of procedures): Not Applicable
ED Attending Note
-
Portions of this chart may have been created with voice recognition software.� Occasional wrong word or��sound alike� substitutions may have occurred due to the inherent limitations of voice recognition software.
Discharge Plan
Departure
Patient Disposition: Home (Routine Discharge)
Date of Disposition: 05/22/24
Time of Disposition: 19:22
Patient with high blood pressure during this ER visit?: No
Discharge Problem:
Breakthrough seizure
Instructions: Seizures, Adult (DC)
Prescriptions:
No Action
divalproex [Depakote ER] 500 mg tablet extended release 24 hr
500 mg PO DAILY Qty: 14 0RF
oxcarbazepine [Trileptal] 600 mg tablet
600 mg PO BID Qty: 28 0RF
Cortisporin-TC 3.3-3-10-0.5 mg/mL drops,suspension
4 drp otic (ear) TID 7 Days Qty: 10 0RF
clonazepam [Klonopin] 2 mg tablet
2 mg PO BID Qty: 30 0RF
Referrals:
[facility] [Provider Group]
Activity Restrictions/Additional Instructions:
An order was placed for the counter caser. They should reach out to you next day or so. Please follow-up with the family medicine residency office.
Please return for any worsening symptoms.
You may return at any time if you have further concerns.
Interventions
Interventions:
*Risk Screen - Suicide Last Done: 05/22/24 17:34
*General Assessment Last Done: 05/22/24 17:34
*Neglect/Abuse Screening Last Done: 05/22/24 17:34
ED- Fall Risk Assessment Last Done: 05/22/24 18:44
*ED COVID-19 Vaccine History Last Done: 05/22/24 17:34
ED- Cardiac Assessment Last Done: 05/22/24 18:44
ED- Neurological Assessment Last Done: 05/22/24 18:44
ED- Pulmonary Assessment Last Done: 05/22/24 18:44
Discharge Date and Time
Print Language: ARMENIAN
[2024-05-22 18:44] VITALS: BP 134/96
[2024-05-22] MEDS: PERCOCET 5/325 1 TABLET PO (18:45)
--- NOTE | 2024-05-23 10:32 | CM ---
Addendum entered by Jessica Arevalo RN 05/24/24 16:35:
CM received call from patient who stated he found a PCP and made an appointment for May. 2. He would not share with me who it is, but was appreciative for the assistance.
Addendum entered by Jessica Arevalo RN 05/24/24 14:06:
CM received a call from cyber security administrator at Neurology and the residency clinic. She stated that no providers accept [facility] Medicaid.
CM was advised that patient has been seen by [facility]. Patient stated that doctor at practice refused to prescribe patient's Klonopin because his drug test came back negative for benzodiazepines.
Patient stated that he will have different insurance on June 12. He does not know which plan it is but patient will call back.
Addendum entered by Jessica Arevalo RN 05/24/24 13:38:
CM was advised by patient that due to his insurance, neurology is now unable to accept patient into their practice. CM provided patient with number for [facility]. He does plan to call to establish care.
Addendum entered by Jessica Arevalo RN 05/24/24 12:52:
DR. Chen's office will be able to assist patient with appointment. CM advised patient that he should call Dr. Chen's office for an appointment. Patient understands and plans to call.
Addendum entered by Jessica Arevalo RN 05/24/24 09:52:
CM was made aware by patient that Dr. Chen's office will not schedule patient for an appointment. CM left message for Dr. Chen's office to request assistance with appointment.
Addendum entered by Jessica Arevalo RN 05/23/24 14:03:
MERLY left message for patient to call Dr. Chen office at as she is in network with patient's insurance.
Original Note:
CM reviewed medical records. Patient is known to this CM. CM left message on patient's cell phone offering assistance with finding a neurologist. CM will remain available.
== END 2024-05-22 19:34 | disposition home or self-care (01) ==
LOC: EMR 17:32
PROVIDERS: Emergency Medicine; EMERGENCY PHYSICIAN Student in an Organized Health Care Education/Training Program
DX: G40.909 Epilepsy, unspecified, not intractable, without status epilepticus (principal)
CPT/HCPCS: 99283; 73030; 80053; 85025

== ENCOUNTER 2024-08-17 11:38 | Emergency (ER) | payer OTHER, SELFPAY ==
[2024-08-17 11:42] VITALS: BP 139/68
[2024-08-17 11:50] VITALS: BMI 19.1
[2024-08-17 12:00] VITALS: BP 128/110
[2024-08-17 12:03] LABS: % Basophils 0.2 % (0-2); % Immature Granulocytes 0.6 % (0-0.5); % Lymphocytes 6.3 % (20.5-51.1); % Monocytes 7.9 % (1.7-9.3); Absolute Immature Granulocytes 0.1 10^3/uL (0-0.05); Absolute Lymphocytes 1.2 10^3/uL (1.2-3.4); Absolute Monocytes 1.5 10^3/uL (0.1-0.6); Absolute Neutrophils 16.5 10^3/uL (1.4-6.5); Hematocrit 45.1 % (39.0-52.0); Hemoglobin 15.4 g/dL (13.0-18.0); Mean Corp Hgb Conc. 34.1 g/dL (33.0-37.0); Mean Corpuscular Volume 96.6 fL (80.0-94.0); Mean Platelet Volume 9.5 fL (7.4-10.4); Nucleated Red Blood Cells % 0 % (-); Platelet Count 282 10^3/uL (130-400); Red Blood Cell Count 4.67 10^6/uL (4.70-6.10); Red Cell Dist. Width 13.7 % (11.5-14.5); White Blood Cell Count 19.4 10^3/uL (4.8-10.8)
--- NOTE | 2024-08-17 12:06 | ED.GENMED ---
History of Present Illness
General
Chief Complaint: Seizure
Time Seen by Provider: 08/17/24 11:49
History of Present Illness
History of Present Illness:
43-year-old male with known history of seizure disorder presenting after a seizure. Patient arrives by medics. Patient had a seizure at home, medics called by girlfriend. Patient postictal on arrival, limited historian. Patient has been seen in
the hospital in the past for breakthrough seizures, on Klonopin only. He was supposed to be on Tegretol and Lamictal, however stopped taking these medications because he does not like the way that they make him feel. No additional history obtained
at this time
Past History
Past History
ED Past Medical History: Seizures and Psychiatric
ED Past Surgical History: Orthopedic
Social History
Tobacco: Non-smoker
Alcohol: None
Drug: None
Personal: Partner
Living: with family
Employment: Not employed
Phy Exam
Physical Exam
Physical Exam:
General: Well-appearing, no clinical signs of dehydration, nontoxic and in no acute distress
HEENT: protecting airway
Neck: appears supple
CV: Normal heart rate, regular rhythm
Resp: No accessory muscle use, no increased work of breathing
Abd: Soft and non-distended, no tenderness to palpation, normal bowel sounds
Extremities: No deformities, no swelling, no erythema
Neuro: Postictal, protecting airway
: deferred
Rectal: deferred
Psych: Normal affect
Skin: Intact
Course
Orders/Labs/Results
Orders:
Orders
08/17/24 11:55
Complete Blood Count/With Diff Urgent
Comprehensive Metabolic Panel Urgent
08/17/24 12:02
Lorazepam [Ativan] 2 mg .ROUTE .STK-MED ONE
08/17/24 12:04
Lorazepam [Ativan] 2 mg IV NOW STA
08/17/24 12:08
Levetiracetam Injectable [Keppra] 1,000 mg IV NOW STA
08/17/24 12:21
Lorazepam [Ativan] 2 mg .ROUTE .STK-MED ONE
08/17/24 12:25
Lorazepam [Ativan] 2 mg IV NOW STA
08/17/24 12:30
Restraints - Non Violent As Directed
Justification-Patient:: 2-Protective Intervention
Restraint Type-: Soft Limb-L&R Wrist/4rail
Apply From (date): 08/17/24
Apply from (time): 13:24
Remove (date): 08/18/24
Remove (time): 23:59
Abnormal Lab Results
08/17/24
11:55
WBC 19.4 H 10^3/uL
(4.8-10.8)
RBC 4.67 L 10^6/uL
(4.70-6.10)
MCV 96.6 H fL
(80.0-94.0)
MCH 33.0 H pg
(27.0-31.0)
Abs Immat Gran (auto) 0.1 H 10^3/uL
(0-0.05)
Absolute Neuts (auto) 16.5 H 10^3/uL
(1.4-6.5)
Absolute Monos (auto) 1.5 H 10^3/uL
(0.1-0.6)
Immature Gran % 0.6 H %
(0-0.5)
Neutrophils % 85.0 H %
(42.2-75.2)
Lymphocytes % 6.3 L %
(20.5-51.1)
Chloride 110 H mmol/L
(98-107)
Carbon Dioxide 19 L mmol/L
(22-30)
BUN 34 H mg/dl
(9-20)
Glucose 144 H mg/dl
(70-99)
AST 84 H U/L
(17-59)
Albumin 5.3 H g/dl
(3.5-5.0)
08/17/24 11:55
08/17/24 11:55
Vital Signs
Initial and Last Documented VS:
Initial Vital Signs
Temp Pulse Resp BP Pulse Ox
97.8 F 71 16 139/68 95
08/17/24 11:42 08/17/24 11:42 08/17/24 11:42 08/17/24 11:42 08/17/24 11:42
Last Documented Vital Signs
Temp Pulse Resp BP Pulse Ox
97.8 F 69 16 124/79 98
08/17/24 11:42 08/17/24 14:00 08/17/24 14:04 08/17/24 13:30 08/17/24 14:00
MDM/Problems Addressed
MDM/Problems Addressed:
43-year-old male with history of seizure disorder presenting after seizure. Vital signs on arrival are normal.
On exam patient is well-appearing, no acute distress or discomfort. Patient afebrile, nontoxic in appearance. Initially postictal on arrival, however did start to wake up, overall limited story and. Reports that he supposed to take clonazepam for
his seizures. Shortly after becoming alert, patient had a witnessed seizure in the emergency department, tonic-clonic, administered Ativan. Seizure activity stopped. When patient was coming out of postictal state, became very aggressive,
requiring additional dose of Ativan for safety concerns. Patient had initially arrived by police due to aggressive behavior during postictal state as well. Plan for laboratory analysis and continued monitoring. Dose of Keppra administered.
Patient is now awake and alert. Notes that he is on clonazepam, however is post take it twice a day, sometimes only takes it once a day. Suspect medication noncompliance. Notes that he did follow-up with neurology last week, was prescribed an
medication, however his insurance did not cover it so he has not been taking it. Labs show leukocytosis, suspected to be reactive from seizure activity. Again without concern for systemic infection. Ultimately feel stable for discharge, however
advise calling neurology office for potential change of prescription given insurance issues. Educated on importance of compliance with his medications. Return precautions discussed.
*Critical Care Note
Total Time (30-74mins, 75-104mins- exclusive of procedures): Not Applicable
ED Attending Note
-
Portions of this chart may have been created with voice recognition software.� Occasional wrong word or��sound alike� substitutions may have occurred due to the inherent limitations of voice recognition software.
Discharge Plan
Departure
Prescriptions:
No Action
clonazepam 1 mg tablet
1.5 mg PO BID
Referrals:
UNKNOWN - PT NOT,INTERVIEWE [Family Provider] -
Interventions
Interventions:
*Risk Screen - Suicide Last Done: 08/17/24 11:51
*General Assessment Last Done: 08/17/24 11:51
*Neglect/Abuse Screening Last Done: 08/17/24 11:51
*ED COVID-19 Vaccine History Last Done: 08/17/24 11:51
ED- Cardiac Assessment Last Done: 08/17/24 11:52
ED- Neurological Assessment Last Done: 08/17/24 11:52
ED- Pulmonary Assessment Last Done: 08/17/24 11:52
Discharge Date and Time
Print Language: CYPRIOT
[2024-08-17] MEDS: ATIVAN 2 MG IV ×2 (12:07→12:26)
[2024-08-17] MEDS: KEPPRA 1000 MG IV (12:11)
[2024-08-17 12:17] LABS: ALT (SGPT) 33 U/L (0-50); AST (SGOT) 84 U/L (17-59); Albumin 5.3 g/dl (3.5-5.0); Alkaline Phosphatase 56 U/L (38-126); Blood Urea Nitrogen 34 mg/dl (9-20); Calcium 9.5 mg/dl (8.4-10.2); Carbon Dioxide 19 mmol/L (22-30); Chloride 110 mmol/L (98-107); Estimated Creatinine Clearance 85 ml/min; Glucose 144 mg/dl (70-99); Sodium 145 mmol/L (135-145); Total Bilirubin 0.9 mg/dl (0.2-1.3); eGFR > 60.00
[2024-08-17 12:30] VITALS: BP 129/85
[2024-08-17 13:00] VITALS: BP 112/77
[2024-08-17 13:30] VITALS: BP 124/79
[2024-08-17 16:09] VITALS: BP 125/87
== END 2024-08-17 17:12 | disposition home or self-care (01) ==
LOC: EMR 11:38
PROVIDERS: EMERGENCY PHYSICIAN Student in an Organized Health Care Education/Training Program
DX: G40.909 Epilepsy, unspecified, not intractable, without status epilepticus (principal); Z79.899 Other long term (current) drug therapy
CPT/HCPCS: 99282; 80053; 85025

== ENCOUNTER 2024-08-20 20:12 | Emergency (ER) | payer OTHER, SELFPAY ==
[2024-08-20 20:13] VITALS: BP 139/105
[2024-08-20 23:11] VITALS: BMI 21.1
[2024-08-20 23:15] VITALS: BP 128/74
--- NOTE | 2024-08-20 23:26 | ED.GENMED ---
History of Present Illness
General
Chief Complaint: Seizure
Source: patient
Exam Limitations: none
Time Seen by Provider: 08/20/24 23:15
History of Present Illness
History of Present Illness:
See MDM
Past History
Past History
ED Past Medical History: Seizures and Psychiatric
ED Past Surgical History: Orthopedic
Social History
Tobacco: Non-smoker
Alcohol: None
Drug: None
Personal: Partner
Living: with family
Employment: Not employed
Phy Exam
Physical Exam
Physical Exam:
See MDM
Course
Orders/Labs/Results
Orders:
Orders
08/20/24 23:22
Levetiracetam [Keppra] 500 mg PO NOW STA
Vital Signs
Initial and Last Documented VS:
Initial Vital Signs
Temp Pulse Resp BP Pulse Ox
99.3 F 109 18 139/105 97
08/20/24 20:13 08/20/24 20:13 08/20/24 20:13 08/20/24 20:13 08/20/24 20:13
Last Documented Vital Signs
Temp Pulse Resp BP Pulse Ox
99.3 F 90 16 128/74 98
08/20/24 20:13 08/20/24 23:15 08/20/24 23:15 08/20/24 23:15 08/20/24 23:15
MDM/Problems Addressed
Differential Diagnosis Includes:
HPI and MDM Narrative:
43-year-old male presenting for evaluation of breakthrough seizures. Patient has a prior history of seizures and he does not drive. He takes clonazepam for his seizures but sometimes takes it once a day instead of twice a day. He was just
evaluated in the emergency department for his breakthrough seizures and was told to be compliant with his medications. Patient states he had another seizure today. He states his neurologist prescribed a medicine that is not covered by his
insurance company. I discussed the importance of following up with the prescriber to figure out the appropriate long-term medication. Patient states he is no longer on seizure medications. I question whether or not he has been on Keppra. He
states he did have breakthrough seizures despite being on Keppra. Since he tolerated the medicine in the past, will restart Keppra for the next week until he can get in contact with his neurologist to figure out a better alternative
On exam, patient is well-appearing and nontoxic. He has no evidence of trauma. He is not postictal. He is answering questions appropriately
Physical exam
General: Well appearing and non-toxic
HEENT: protecting airway
Neck: appears supple
CV: No evidence of cyanosis
Resp: No accessory muscle use
Abd: Non-distended
Extremities: No deformities
Neuro: alert
Psych: Normal affect
Skin: Intact
Problems Addressed including Acute and Chronic Conditions affecting care:
1. Breakthrough seizures
Acuity: acute
Prognosis: stable
Details: Will restart Keppra but discussed the importance of follow-up with neurology
Differential Diagnosis (but not limited to): Medication noncompliance, breakthrough seizures
Testing considered: CT head but he is acting appropriately and has no focal deficits
Drug therapy (if applicable): OTC meds, please see d/c instruction regarding Rx drugs
Amount and/or Complexity of Data Reviewed
Clinical info obtained from: Patient
External data reviewed: N/A
Labs I independently reviewed (but not limited to): N/A
Radiology: N/A
Pulse Ox: not hypoxic
EKG independently reviewed: N/A
Aboriginal Education Teacher: N/A
Critical Care: N/A
Risk of Complication:
Social Determinants of health: Good social support
Discussed with other providers: N/A
Escalation of Care includes Admit/Obs: After being observed in the Emergency Department, pt stable for discharge.
Occasional wrong word or 'sound a like' substitutions may have occurred due to the inherent limitations of voice recognition software. Read the chart carefully and recognize, using context, where substitutions have occurred.
*Critical Care Note
Total Time (30-74mins, 75-104mins- exclusive of procedures): Not Applicable
ED Attending Note
-
Portions of this chart may have been created with voice recognition software.� Occasional wrong word or��sound alike� substitutions may have occurred due to the inherent limitations of voice recognition software.
Discharge Plan
Departure
Patient Disposition: Home (Routine Discharge)
Date of Disposition: 08/20/24
Time of Disposition: 23:31
Patient with high blood pressure during this ER visit?: No
Discharge Problem:
Seizure disorder
Instructions: Seizures, Adult (DC)
Prescriptions:
New
levetiracetam [Keppra] 500 mg tablet
500 mg PO BID Qty: 20 0RF
clonazepam 1 mg tablet
1.5 mg PO BID 7 Days Qty: 21 0RF
No Action
clonazepam 1 mg tablet
1.5 mg PO BID
Activity Restrictions/Additional Instructions:
You need to call the neurologist to discuss an appropriate medication that will treat your seizures and will be covered by your insurance company.
Because you have tolerated Keppra before, I am placing you on a short prescription to at least cover you until you can figure this out with your neurologist.
Return for worsening symptoms.
Interventions
Interventions:
*Risk Screen - Suicide Last Done: 08/20/24 20:13
*General Assessment Last Done: 08/20/24 20:13
*Neglect/Abuse Screening Last Done: 08/20/24 20:13
ED- Fall Risk Assessment Last Done: 08/20/24 23:11
*ED COVID-19 Vaccine History Last Done: 08/20/24 23:11
ED- Cardiac Assessment Last Done: 08/20/24 23:13
ED- Neurological Assessment Last Done: 08/20/24 23:13
ED- Pulmonary Assessment Last Done: 08/20/24 23:13
Discharge Date and Time
Print Language: LATVIAN
[2024-08-20] MEDS: KEPPRA 500 MG PO (23:28)
== END 2024-08-20 23:46 | disposition home or self-care (01) ==
LOC: EMR 20:12
PROVIDERS: EMERGENCY PHYSICIAN Student in an Organized Health Care Education/Training Program
DX: G40.909 Epilepsy, unspecified, not intractable, without status epilepticus (principal); Z79.899 Other long term (current) drug therapy
CPT/HCPCS: 99283

== ENCOUNTER → 2024-09-12 17:23 | Outpatient (REF) | payer OTHER, SELFPAY | LOC: MRI 3T 17:23 | PROVIDERS: ATTENDING PHYSICIAN Psychiatry & Neurology Neurology | DX: G40.909 Epilepsy, unspecified, not intractable, without status epilepticus (principal) | CPT/HCPCS: 70553; A9575 ==

== ENCOUNTER 2024-09-24 07:13 | Emergency (ER) | payer OTHER, SELFPAY ==
[2024-09-24 07:14] VITALS: BP 157/92
[2024-09-24 07:36] VITALS: BMI 19.5
[2024-09-24 07:37] VITALS: BP 149/97
--- NOTE | 2024-09-24 07:41 | ED.GENMED ---
History of Present Illness
General
Chief Complaint: Seizure
Source: patient
Exam Limitations: none
Time Seen by Provider: 09/24/24 07:33
History of Present Illness
History of Present Illness:
See MDM
Past History
Past History
ED Past Medical History: Seizures and Psychiatric
ED Past Surgical History: Orthopedic
Social History
Tobacco: Non-smoker
Alcohol: None
Drug: None
Personal: Partner
Living: with family
Employment: Not employed
Phy Exam
Physical Exam
Physical Exam:
See MDM
Course
Orders/Labs/Results
Orders:
Orders
09/24/24 07:39
Levetiracetam Injectable [Keppra] 1,000 mg IV NOW STA
09/24/24 07:44
Complete Blood Count/With Diff Urgent
Comprehensive Metabolic Panel Urgent
Abnormal Lab Results
09/24/24
07:44
RBC 4.22 L 10^6/uL
(4.70-6.10)
MCV 95.7 H fL
(80.0-94.0)
MCH 33.6 H pg
(27.0-31.0)
BUN 7 L mg/dl
(9-20)
Creatinine 0.6 L mg/dL
(0.7-1.3)
09/24/24 07:44
09/24/24 07:44
Vital Signs
Initial and Last Documented VS:
Initial Vital Signs
Temp Pulse Resp BP Pulse Ox
98.2 F 72 16 157/92 98
09/24/24 07:14 09/24/24 07:14 09/24/24 07:14 09/24/24 07:14 09/24/24 07:14
Last Documented Vital Signs
Temp Pulse Resp BP Pulse Ox
97.5 F 55 20 128/98 99
09/24/24 07:37 09/24/24 08:00 09/24/24 08:00 09/24/24 08:00 09/24/24 08:00
MDM/Problems Addressed
Differential Diagnosis Includes:
HPI and MDM Narrative:
43-year-old male presenting for evaluation of of 3 seizures. Patient states he had 3 seizures in the past 3 hours. Patient has been to the emergency department several times for breakthrough seizures. He has been on certain antiepileptics that
have worked in the past but are no longer covered by insurance. He was placed back on Keppra since that has worked in the past. He claims compliance with his Keppra and states he has been seizure-free for longer than normal.
Physical exam
General: Well appearing and non-toxic
HEENT: protecting airway
Neck: appears supple
CV: No evidence of cyanosis
Resp: No accessory muscle use
Abd: Non-distended
Extremities: No deformities
Neuro: alert
Psych: Normal affect
Skin: Intact
Problems Addressed including Acute and Chronic Conditions affecting care:
1. Breakthrough seizure
Acuity: acute
Prognosis: stable
Details: Given that patient has tolerated Keppra, will load with Keppra in emergency department and will increase his nighttime dose. He has follow-up with neurology and EEG and MRI
Updates
Patient remains seizure-free. Will increase nighttime dose. Discussed follow-up with neurology.
Differential Diagnosis (but not limited to): Breakthrough seizure, medication noncompliance
Testing considered: CT head he has no focal neurodeficits
Drug therapy (if applicable): OTC meds, please see d/c instruction regarding Rx drugs
Amount and/or Complexity of Data Reviewed
Clinical info obtained from: Patient
External data reviewed: N/A
Labs I independently reviewed (but not limited to): Bicarb normal
Radiology: N/A
Pulse Ox: not hypoxic
EKG independently reviewed: N/A
Engineering Lab Technician: Sinus rhythm
Critical Care: N/A
Risk of Complication:
Social Determinants of health: Good social support
Discussed with other providers: N/A
Escalation of Care includes Admit/Obs: After being observed in the Emergency Department, pt stable for discharge.
Occasional wrong word or 'sound a like' substitutions may have occurred due to the inherent limitations of voice recognition software. Read the chart carefully and recognize, using context, where substitutions have occurred.
*Critical Care Note
Total Time (30-74mins, 75-104mins- exclusive of procedures): Not Applicable
ED Attending Note
-
Portions of this chart may have been created with voice recognition software.� Occasional wrong word or��sound alike� substitutions may have occurred due to the inherent limitations of voice recognition software.
Discharge Plan
Departure
Patient Disposition: Home (Routine Discharge)
Date of Disposition: 09/24/24
Time of Disposition: 09:03
Patient with high blood pressure during this ER visit?: No
Discharge Problem:
Breakthrough seizure
Instructions: Seizures, Adult (DC)
Prescriptions:
New
levetiracetam [Keppra] 1,000 mg tablet
1,000 mg PO HS Qty: 30 0RF
No Action
clonazepam 1 mg tablet
1.5 mg PO BID
levetiracetam [Keppra] 500 mg tablet
500 mg PO BID Qty: 20 0RF
Referrals:
UNKNOWN - PT DOES,NOT KNOW [Family Provider] -
Activity Restrictions/Additional Instructions:
Please return for any worsening symptoms.
You may return at any time if you have further concerns.
Please follow up with your doctor at the first available appointment, preferably this week.
Please call your neurologist and let them know that we are increasing Keppra to 1000 mg at night. Please continue to take 500 mg at daytime.
Thank you for choosing [facility].
Interventions
Interventions:
*Risk Screen - Suicide Last Done: 09/24/24 07:14
*General Assessment Last Done: 09/24/24 07:14
*Neglect/Abuse Screening Last Done: 09/24/24 07:14
ED- Fall Risk Assessment Last Done: 09/24/24 07:37
*ED COVID-19 Vaccine History Last Done: 09/24/24 07:37
ED- Cardiac Assessment Last Done: 09/24/24 07:37
ED- Neurological Assessment Last Done: 09/24/24 07:37
ED- Pulmonary Assessment Last Done: 09/24/24 07:37
Discharge Date and Time
Print Language: VIETNAMESE
[2024-09-24] MEDS: KEPPRA 1000 MG IV (07:43)
[2024-09-24 07:50] LABS: % Basophils 0.4 % (0-2); % Eosinophils 0.7 % (0-6); % Immature Granulocytes 0.4 % (0-0.5); % Lymphocytes 30.1 % (20.5-51.1); % Monocytes 6.8 % (1.7-9.3); % Neutrophils 61.6 % (42.2-75.2); Absolute Eosinophils 0.1 10^3/uL (0-0.7); Absolute Lymphocytes 2.1 10^3/uL (1.2-3.4); Absolute Monocytes 0.5 10^3/uL (0.1-0.6); Absolute Neutrophils 4.2 10^3/uL (1.4-6.5); Hematocrit 40.4 % (39.0-52.0); Hemoglobin 14.2 g/dL (13.0-18.0); Mean Corp Hgb Conc. 35.1 g/dL (33.0-37.0); Mean Corpuscular Hgb 33.6 pg (27.0-31.0); Mean Corpuscular Volume 95.7 fL (80.0-94.0); Mean Platelet Volume 9.3 fL (7.4-10.4); Nucleated Red Blood Cells % 0 % (-); Platelet Count 259 10^3/uL (130-400); Red Blood Cell Count 4.22 10^6/uL (4.70-6.10); Red Cell Dist. Width 13.2 % (11.5-14.5); White Blood Cell Count 6.8 10^3/uL (4.8-10.8)
[2024-09-24 08:00] VITALS: BP 128/98
[2024-09-24 08:16] LABS: ALT (SGPT) 17 U/L (0-50); AST (SGOT) 26 U/L (17-59); Albumin 4.8 g/dl (3.5-5.0); Alkaline Phosphatase 52 U/L (38-126); Blood Urea Nitrogen 7 mg/dl (9-20); Calcium 9.3 mg/dl (8.4-10.2); Carbon Dioxide 26 mmol/L (22-30); Chloride 103 mmol/L (98-107); Estimated Creatinine Clearance > 125 ml/min; Glucose 93 mg/dl (70-99); Sodium 139 mmol/L (135-145); Total Bilirubin 0.4 mg/dl (0.2-1.3); eGFR > 60.00
[2024-09-24 08:26] LABS: Potassium 3.5 mmol/L (3.5-5.1)
[2024-09-24 09:01] VITALS: BP 131/100
[2024-09-24 09:55] VITALS: BP 133/98
== END 2024-09-24 09:58 | disposition home or self-care (01) ==
LOC: EMR 07:13
PROVIDERS: EMERGENCY PHYSICIAN Student in an Organized Health Care Education/Training Program
DX: G40.909 Epilepsy, unspecified, not intractable, without status epilepticus (principal)
CPT/HCPCS: 99284; 96374; 80053; 85025

== ENCOUNTER → 2024-09-26 10:36 | Outpatient (REF) | payer OTHER, SELFPAY ==
--- NOTE | 2024-09-26 13:48 | EEG.RPT ---
Electroencephalogram Report
Recording
Date of EE09/26/24
Type of EEG: Routine
Length of EEG recordin minutes
Done with Video Recording: Yes
Patient Status: Outpatient
Recording Conditions: Awake, Drowsy and Asleep
Hyperventilation Performed: Yes
Photic Stimulation Performed: Yes
Report
LESS THAN 1 HOUR EEG REPORT
LESS THAN 1 HOUR EEG INTERPRETATION:
Unremarkable EEG for age
CLINICAL CORRELATION:
A normal EEG does not rule out a diagnosis of epilepsy. If clinical suspicion for seizure persists, a prolonged recording may be warranted.
Clinical correlation is advised.
METHODS:
A 21 channel digitized electroencephalogram (EEG) was performed using the 10/20 international system of electrode placement and one-lead of ECG recorded. Video was performed. Persyst quantitative EEG analysis was performed.
ELECTROENCEPHALOGRAPHER IMPRESSION(S):
Quality of study
Good
Background
There was an unremarkable anterior-posterior voltage gradient of alpha frequency.
With eye opening the background activity changed to a low voltage mixture of frequencies.
There were no significant asymmetries of background activity noted.
Sleep
Drowsiness present
Stage I present
Stage 2 present
Hyperventilation
No driving
Photic Stimulation
No driving
ECG
Normal sinus rhythm
--- NOTE | 2024-09-26 19:01 | EEGC.RPT ---
Continuous EEG Report
Recording
Start Date of Data Reviewed: 09/26/24
Done with Video Recording: Yes
Electrocardiogram: Unremarkable
Report
�TECHNICAL REMARKS:��This is a technically satisfactory eighteen channel record employing 21 disc electrodes applied according to a measured international 10-20 electrode placement system.��There were no significant technical difficulties.��The
study was done on a Springpad System.
STUDY DURATION: 54�mins,�38 secs.
CLINICAL HISTORY: This is a 83-year-old man with history of seizures this study was requested to look for epileptiform abnormalities.
�
MEDICATIONS: Keppra, clonazepam
REPORT: �At the onset of the EEG, the patient is awake. The background activity consists of 10-11 Hz, persistent, posteriorly dominant, moderate amplitude, symmetric and rhythmic activity that is reactive to eye-opening. Anteriorly, it consists of a
mixture of low voltage indeterminate activity and 20-25 Hz, persistent, low amplitude, symmetric and rhythmic activity.� Stepwise intermittent photic stimulation (1-31 Hz) and hyperventilation (2 min, good effort) do not induce any abnormalities.
Hyperventilation was not performed. Drowsiness is characterized by low amplitude mixed frequency activity, decreased eye blinking, and muscle artifact. Excessive beta activity was present.
�
�IMPRESSION: �This is a normal awake and drowsy EEG. There is no evidence of focal slowing or epileptiform activity.� A normal EEG does not rule out epilepsy. If the clinical picture warrants, a sleep-deprived awake and sleep record may be helpful.
== END ==
LOC: EEG 10:36
PROVIDERS: ATTENDING PHYSICIAN Psychiatry & Neurology Neurology
DX: G40.909 Epilepsy, unspecified, not intractable, without status epilepticus (principal)
CPT/HCPCS: 95812

== ENCOUNTER 2024-10-15 16:26 | Inpatient (IN) | payer OTHER, SELFPAY ==
[2024-10-15] VITALS (44 sets, daily range): BP systolic 104–160; BP diastolic 65–111; BMI 18.5
--- NOTE | 2024-10-15 12:24 | ED.GENMED ---
History of Present Illness
<Merary Bowman PA-C - Last Filed: 10/15/24 16:50>
General
Chief Complaint: Seizure
Source: ambulance crew
Exam Limitations: clinical condition and altered mental status
Time Seen by Provider: 10/15/24 11:56
History of Present Illness
History of Present Illness:
43-year-old male coming from home via EMS, patient is unable to provide any history, I spoke with the EMS and the patient's girlfriend Chiquita to obtain history
Presents for multiple episodes of seizure activity today. Girlfriend says it started at 2 AM and he had 3 witnessed seizures at home. Between the seizures he seemed to wake up but he was then went back to sleep. Then this morning he had 2 more
and was very confused and warm. She called 911. EMS witnessed 2 or 3 epileptic like events during transport, the patient received 2 of IV Versed total and was still agitated, pulling at things, not making sense, but breathing on his own
Girlfriend said that he missed his dose of Klonopin and Keppra last night
Patient has been here many times for status epilepticus or breakthrough seizures and had an EEG just 3 weeks ago which did not show any epileptic activity.
He is not had any known trauma or recent illness according to Chiquita
Past History
<Merary Bowman PA-C - Last Filed: 10/15/24 16:50>
Past History
ED Past Medical History: Seizures and Psychiatric
ED Past Surgical History: Orthopedic
Social History
Tobacco: Non-smoker
Alcohol: None
Drug: None
Personal: Partner
Living: with family
Employment: Not employed
Review of Systems
<STEVE Johnston Last Filed: 10/15/24 16:50>
Review of Systems
Allergies reviewed?: Yes
All Other Systems: Not applicable
Phy Exam
<STEVE Johnston Last Filed: 10/15/24 16:50>
Physical Exam
Physical Exam:
GENERAL: Altered, initially minimally responsive, but agitated and pulling at things,
HEAD: NCAT
EYE: pupils equal and reactive, no nystagmus, no photophobia, strabismus left eye
NECK: Supple,full rom, nontender no meningismus
ENT: o/p clr, mmm.
CARDIAC: Regular rate and rhythm . no edema
LUNGS: Clear breath sounds bilaterally, no acute respiratory distress, no wheezes/rales/rhonchi
ABDOMEN: Soft, without focal tenderness, no r/g, no cvat
NEUROLOGICAL: Clearly disoriented, agitated, occasionally answers questions, cannot follow commands
SKIN: Warm and dry, skin intact. No signs of trauma
MUSCULOSKELETAL: No edema, well perfused.
PSYCH: Altered
Sepsis
<Merary Bowman PA-C - Last Filed: 10/15/24 16:50>
Sepsis Criteria
Sepsis Criteria:
THIS WAS NOT CLEAR SEPSIS PICTURE
PT COULD HAVE LEUKOCYTOIS AND FEVER FROM STATUS EPILEPTICUS
IN ORDER TO SAFELY PERFORM LP, WE NEEDED HEAD CT FIRST AND THEN SEDATION
GIVEN THIS, WE DID HOLD ANTIBIOTICS UNTIL LP WAS PERFORMED TO GET ACCURATE CULTURE, PT WAS LESS LIKELY TO HAVE ENCEPHALITIS/MENINGITIS AND MORE LIKELY TO BE ALTERED AND HAVE LAB ABNORMALITIES RELATED TO HIS SEIZURES.
Sepsis Screening
Sepsis Assessment: Sepsis Ruled Out
Sepsis Screen
Sepsis Screen: Sepsis Ruled Out
Date: 10/15/24
Time: 15:00
<Cari Curry MD - Last Filed: 10/16/24 08:55>
Sepsis Screen
Sepsis Screen: Sepsis Ruled Out
Date: 10/16/24
Time: 08:54
Course
<Merary Bowman PA-C - Last Filed: 10/15/24 16:50>
Orders/Labs/Results
Orders:
Orders
10/15/24 11:45
Lorazepam [Ativan] 1 mg IV NOW STA
10/15/24 11:58
CT Head W/o Iv Contrast Urgent
Comment:
Reason For Exam: status epilepticus
0.9% Sodium Chloride 1000 ml [Nss] 1,000 ml IV BOLUS
Levetiracetam Injectable [Keppra] 1,000 mg IV NOW STA
10/15/24 12:16
Alcohol Urgent
COVID-19 Antigen Urgent
Source: Nasal Swab
Complete Blood Count/With Diff Urgent
Comprehensive Metabolic Panel Urgent
Creatine Phosphokinase Urgent
Comment: ADD ON
Free T4 Urgent
Lactic Acid Urgent
Magnesium Urgent
Comment: ADD ON
TSH Reflex To Free T4 Urgent
Comment: ADD ON
Blood Culture Urgent
ROBER[facility] Source: Blood/Venous
Specimen Description:
Influenza A+B Rapid Molecular Urgent
ROBERTH Source: Nasal Swab
Specimen Description:
10/15/24 12:18
Acetaminophen [Tylenol/Feverall] 650 mg RECTAL NOW STA
10/15/24 12:38
Lorazepam [Ativan] 2 mg IV NOW STA
10/15/24 12:40
Lorazepam [Ativan] 2 mg .ROUTE .STK-MED ONE
10/15/24 12:48
Add On- LAB Urgent
Tests Added?: alcohol, magnesium, cpk, keppra level
10/15/24 12:50
Acetaminophen 1000MG/100Ml [Ofirmev] 1,000 mg in 100 ml .ROUTE .STK-MED
10/15/24 12:52
0.9% Sodium Chloride 1000 ml [Nss] 1,700 ml IV NOW STA
Acetaminophen 1000MG/100Ml [Ofirmev] 1,000 mg IV NOW STA
10/15/24 13:12
Lorazepam [Ativan] 1 mg IV NOW STA
10/15/24 13:13
Lorazepam [Ativan] 2 mg .ROUTE .STK-MED ONE
10/15/24 13:14
Lorazepam [Ativan] 2 mg IV NOW STA
10/15/24 13:27
Lorazepam [Ativan] 2 mg .ROUTE .STK-MED ONE
10/15/24 13:39
Propofol [Diprivan] 20 mg IV NOW STA
10/15/24 13:40
ASA Classification Routine
10/15/24 13:42
Lorazepam [Ativan] 2 mg IV NOW STA
10/15/24 13:49
Keppra (Levetiracetam) [S] Urgent
Urinalysis Reflex To Culture Urgent
Date Specimen was Collected: 10/15/24
Time Specimen was Collected: 13:16
Urine Drug Abuse Screen Urgent
Date Specimen was Collected: 10/15/24
Time Specimen was Collected: 13:17
Urine Microscopic Reflex Cult Urgent
10/15/24 14:36
CSF Cell Count Stat
Date Specimen was Collected: 10/15/24
Time Specimen was Collected: 14:32
CSF Cell Count Urgent
Date Specimen was Collected: 10/15/24
Time Specimen was Collected: 14:32
CSF Tube Number: 4
Comment: Tube #4
Meningitis Panel, CSF by PCR Urgent
ROBER[facility] Source: Csf
Specimen Description:
10/15/24 14:37
Spinal Fluid Glucose Urgent
Date Specimen was Collected: 10/15/24
Time Specimen was Collected: 14:35
CSF Tube Number: 3
Spinal Fluid Protein Urgent
Date Specimen was Collected: 10/15/24
Time Specimen was Collected: 14:35
CSF Tube Number: 3
CSF Culture with Gram Stain Urgent
ROBER[facility] Source: Csf
Specimen Description:
Date Specimen was Collected: 10/15/24
Time Specimen was Collected: 14:35
# of Tube: 2
10/15/24 14:53
Acyclovir [Zovirax Injection] 500 mg 0.9% Sodium Chloride 100 ml [Nss] 100 ml IV NOW
10/15/24 15:03
Lorazepam [Ativan] 2 mg IV NOW STA
10/15/24 16:03
Admit/Transfer Patient As Directed
Co-Sign Provider:
Level of Care: Inpatient admission
Assign to:: IMU- Intermediate Care
Physician / Group: [email or web address]
Diagnosis: Recurrent Sz concerning for status epilepticus Post ictal agitation
Reason for Hospitalization: Recurrent Sz concerning for status epilepticus
Post ictal agitation and restlessness
Suspect Clonazepam withdrawal Sz
Expected length of stay greater than two midnights?: Yes
ELOS- Estimated Length of Stay in days: 3
I certify the patient meets the requirements for IP care: Yes
10/15/24 16:05
Code Status As Directed
Resuscitation Status: Full Code
10/15/24 17:06
Bisacodyl [Dulcolax] 10 mg RECTAL [id number] PRN
Docusate W/Senna [Senokot-S] 1 tablet PO BIDPRN PRN
Polyethylene Glycol Powder [Miralax] 17 grams PO DAILYPRN PRN
10/15/24 17:06
INFECTIOUS DISEASE CONSULT Routine
Consulting Provider: Kiley Whitmore
Was physician already notified: Yes
Reason for consult: Rcurrent Sz, eval for CNC infection
NEUROLOGY CONSULT Routine
Consulting Provider: Maryse Ray
Was physician already notified: Yes
Reason for consult: Recurrent Sz concerning for status epilepticus Post ictal agitation
Activity As Directed
Activity Level: With Assistance
Intake/ Output As Directed
Frequency: Per unit guidelines
Neurological Checks As Directed
Frequency: Per unit guidelines
Vital Signs As Directed
Frequency: Per unit guidelines
DX Deep Vein Thrombosis Video Routine
10/15/24 20:00
Clonazepam [Klonopin] 1.5 mg PO BID
Heparin 5,000 units SC Q12
Levetiracetam Injectable [Keppra] 500 mg IV Q12
10/16/24 00:00
Acyclovir [Zovirax Injection] 400 mg 0.9% Sodium Chloride 100 ml [Nss] 100 ml IV Q8H
10/16/24 04:14
Basic Metabolic Panel IN AM
Complete Blood Count/No Diff IN AM
Abnormal Lab Results
10/15/24 10/15/24 10/15/24
12:16 13:49 14:37
WBC 22.7 H 10^3/uL
(4.8-10.8)
RBC 4.69 L 10^6/uL
(4.70-6.10)
MCV 96.2 H fL
(80.0-94.0)
MCH 33.5 H pg
(27.0-31.0)
Abs Immat Gran (auto) 0.2 H 10^3/uL
(0-0.05)
Absolute Neuts (auto) 20.8 H 10^3/uL
(1.4-6.5)
Absolute Lymphs (auto) 0.5 L 10^3/uL
(1.2-3.4)
Absolute Monos (auto) 1.3 H 10^3/uL
(0.1-0.6)
Immature Gran % 0.7 H %
(0-0.5)
Neutrophils % 91.6 H %
(42.2-75.2)
Lymphocytes % 2.0 L %
(20.5-51.1)
Chloride 109 H mmol/L
(98-107)
Carbon Dioxide 18 L mmol/L
(22-30)
Glucose 121 H mg/dl
(70-99)
Lactic Acid 3.0 H mmol/L
(0.7-2.0)
Magnesium 2.7 H mg/dl
(1.6-2.3)
Creatine Kinase 268 H U/L
(55-170)
TSH (Reflex) 0.39 L uIU/ml
(0.47-4.68)
Urine Ketones 1+ A
(Negative)
Ur Occult Blood Reflex 4+ A
(Negative)
Urine Bacteria (Reflex) Few A
(Negative)
Urine Albumin (Reflex) 2+ A
(Neg - Trace)
CSF Glucose 82 H mg/dl
(40-70)
CSF Total Protein 61 H mg/dl
(12-60)
U Marijuana (THC) Screen Positive H
(Negative)
10/15/24 12:16
10/15/24 12:16
Vital Signs
Initial and Last Documented VS:
Initial Vital Signs
Temp Pulse Resp BP Pulse Ox
100.8 F H 91 20 155/93 94
10/15/24 12:19 10/15/24 12:19 10/15/24 12:19 10/15/24 12:19 10/15/24 12:19
Last Documented Vital Signs
Temp Pulse Resp BP Pulse Ox
98.9 F 47 15 109/77 97
10/16/24 05:00 10/16/24 07:30 10/16/24 07:30 10/16/24 07:30 10/16/24 07:00
<Cari Curry MD - Last Filed: 10/16/24 08:55>
Orders/Labs/Results
Orders:
Orders
10/15/24 11:45
Lorazepam [Ativan] 1 mg IV NOW STA
10/15/24 11:58
CT Head W/o Iv Contrast Urgent
Comment:
Reason For Exam: status epilepticus
0.9% Sodium Chloride 1000 ml [Nss] 1,000 ml IV BOLUS
Levetiracetam Injectable [Keppra] 1,000 mg IV NOW STA
10/15/24 12:16
Alcohol Urgent
COVID-19 Antigen Urgent
Source: Nasal Swab
Complete Blood Count/With Diff Urgent
Comprehensive Metabolic Panel Urgent
Creatine Phosphokinase Urgent
Comment: ADD ON
Free T4 Urgent
Lactic Acid Urgent
Magnesium Urgent
Comment: ADD ON
TSH Reflex To Free T4 Urgent
Comment: ADD ON
Blood Culture Urgent
ROBER[facility] Source: Blood/Venous
Specimen Description:
Influenza A+B Rapid Molecular Urgent
ROBERTH Source: Nasal Swab
Specimen Description:
10/15/24 12:18
Acetaminophen [Tylenol/Feverall] 650 mg RECTAL NOW STA
10/15/24 12:38
Lorazepam [Ativan] 2 mg IV NOW STA
10/15/24 12:40
Lorazepam [Ativan] 2 mg .ROUTE .STK-MED ONE
10/15/24 12:48
Add On- LAB Urgent
Tests Added?: alcohol, magnesium, cpk, keppra level
10/15/24 12:50
Acetaminophen 1000MG/100Ml [Ofirmev] 1,000 mg in 100 ml .ROUTE .STK-MED
10/15/24 12:52
0.9% Sodium Chloride 1000 ml [Nss] 1,700 ml IV NOW STA
Acetaminophen 1000MG/100Ml [Ofirmev] 1,000 mg IV NOW STA
10/15/24 13:12
Lorazepam [Ativan] 1 mg IV NOW STA
10/15/24 13:13
Lorazepam [Ativan] 2 mg .ROUTE .STK-MED ONE
10/15/24 13:14
Lorazepam [Ativan] 2 mg IV NOW STA
10/15/24 13:27
Lorazepam [Ativan] 2 mg .ROUTE .STK-MED ONE
10/15/24 13:39
Propofol [Diprivan] 20 mg IV NOW STA
10/15/24 13:40
ASA Classification Routine
10/15/24 13:42
Lorazepam [Ativan] 2 mg IV NOW STA
10/15/24 13:49
Keppra (Levetiracetam) [S] Urgent
Urinalysis Reflex To Culture Urgent
Date Specimen was Collected: 10/15/24
Time Specimen was Collected: 13:16
Urine Drug Abuse Screen Urgent
Date Specimen was Collected: 10/15/24
Time Specimen was Collected: 13:17
Urine Microscopic Reflex Cult Urgent
10/15/24 14:36
CSF Cell Count Stat
Date Specimen was Collected: 10/15/24
Time Specimen was Collected: 14:32
CSF Cell Count Urgent
Date Specimen was Collected: 10/15/24
Time Specimen was Collected: 14:32
CSF Tube Number: 4
Comment: Tube #4
Meningitis Panel, CSF by PCR Urgent
[facility] Source: Csf
Specimen Description:
10/15/24 14:37
Spinal Fluid Glucose Urgent
Date Specimen was Collected: 10/15/24
Time Specimen was Collected: 14:35
CSF Tube Number: 3
Spinal Fluid Protein Urgent
Date Specimen was Collected: 10/15/24
Time Specimen was Collected: 14:35
CSF Tube Number: 3
CSF Culture with Gram Stain Urgent
R[facility] Source: Csf
Specimen Description:
Date Specimen was Collected: 10/15/24
Time Specimen was Collected: 14:35
# of Tube: 2
10/15/24 14:53
Acyclovir [Zovirax Injection] 500 mg 0.9% Sodium Chloride 100 ml [Nss] 100 ml IV NOW
10/15/24 15:03
Lorazepam [Ativan] 2 mg IV NOW STA
10/15/24 16:03
Admit/Transfer Patient As Directed
Co-Sign Provider:
Level of Care: Inpatient admission
Assign to:: IMU- Intermediate Care
Physician / Group: chapo
Diagnosis: Recurrent Sz concerning for status epilepticus Post ictal agitation
Reason for Hospitalization: Recurrent Sz concerning for status epilepticus
Post ictal agitation and restlessness
Suspect Clonazepam withdrawal Sz
Expected length of stay greater than two midnights?: Yes
ELOS- Estimated Length of Stay in days: 3
I certify the patient meets the requirements for IP care: Yes
10/15/24 16:05
Code Status As Directed
Resuscitation Status: Full Code
10/15/24 17:06
Bisacodyl [Dulcolax] 10 mg RECTAL [id number] PRN
Docusate W/Senna [Senokot-S] 1 tablet PO BIDPRN PRN
Polyethylene Glycol Powder [Miralax] 17 grams PO DAILYPRN PRN
10/15/24 17:06
INFECTIOUS DISEASE CONSULT Routine
Consulting Provider: Kiley Whitmore
Was physician already notified: Yes
Reason for consult: Rcurrent Sz, eval for CNC infection
NEUROLOGY CONSULT Routine
Consulting Provider: Maryse Ray
Was physician already notified: Yes
Reason for consult: Recurrent Sz concerning for status epilepticus Post ictal agitation
Activity As Directed
Activity Level: With Assistance
Intake/ Output As Directed
Frequency: Per unit guidelines
Neurological Checks As Directed
Frequency: Per unit guidelines
Vital Signs As Directed
Frequency: Per unit guidelines
DX Deep Vein Thrombosis Video Routine
10/15/24 20:00
Clonazepam [Klonopin] 1.5 mg PO BID
Heparin 5,000 units SC Q12
Levetiracetam Injectable [Keppra] 500 mg IV Q12
10/16/24 00:00
Acyclovir [Zovirax Injection] 400 mg 0.9% Sodium Chloride 100 ml [Nss] 100 ml IV Q8H
10/16/24 04:14
Basic Metabolic Panel IN AM
Complete Blood Count/No Diff IN AM
Abnormal Lab Results
10/15/24 10/15/24 10/15/24
12:16 13:49 14:37
WBC 22.7 H 10^3/uL
(4.8-10.8)
RBC 4.69 L 10^6/uL
(4.70-6.10)
MCV 96.2 H fL
(80.0-94.0)
MCH 33.5 H pg
(27.0-31.0)
Abs Immat Gran (auto) 0.2 H 10^3/uL
(0-0.05)
Absolute Neuts (auto) 20.8 H 10^3/uL
(1.4-6.5)
Absolute Lymphs (auto) 0.5 L 10^3/uL
(1.2-3.4)
Absolute Monos (auto) 1.3 H 10^3/uL
(0.1-0.6)
Immature Gran % 0.7 H %
(0-0.5)
Neutrophils % 91.6 H %
(42.2-75.2)
Lymphocytes % 2.0 L %
(20.5-51.1)
Chloride 109 H mmol/L
(98-107)
Carbon Dioxide 18 L mmol/L
(22-30)
Glucose 121 H mg/dl
(70-99)
Lactic Acid 3.0 H mmol/L
(0.7-2.0)
Magnesium 2.7 H mg/dl
(1.6-2.3)
Creatine Kinase 268 H U/L
(55-170)
TSH (Reflex) 0.39 L uIU/ml
(0.47-4.68)
Urine Ketones 1+ A
(Negative)
Ur Occult Blood Reflex 4+ A
(Negative)
Urine Bacteria (Reflex) Few A
(Negative)
Urine Albumin (Reflex) 2+ A
(Neg - Trace)
CSF Glucose 82 H mg/dl
(40-70)
CSF Total Protein 61 H mg/dl
(12-60)
U Marijuana (THC) Screen Positive H
(Negative)
10/15/24 12:16
10/15/24 12:16
Vital Signs
Initial and Last Documented VS:
Initial Vital Signs
Temp Pulse Resp BP Pulse Ox
100.8 F H 91 20 155/93 94
10/15/24 12:19 10/15/24 12:19 10/15/24 12:19 10/15/24 12:19 10/15/24 12:19
Last Documented Vital Signs
Temp Pulse Resp BP Pulse Ox
98.9 F 47 15 109/77 97
10/16/24 05:00 10/16/24 07:30 10/16/24 07:30 10/16/24 07:30 10/16/24 07:00
Procedures
Joselt;Merary Bowman PA-C - Last Filed: 10/15/24 16:50>
Moderate Sedation
ASA Risk Score: Class I
Chart and allergies reviewed: Yes
Consent for anesthesia obtained: Yes
Time out completed (validating right patient & procedure): Yes
Moderate Sedation Start Time(when first medication is given): 13:51
History of difficult intubation: No
Airway free of obstruction: Yes
Patient has a gag reflex: Yes
Patient is able to open mouth: Yes
Patient has no dentures: Yes
Patient has no loose teeth: Yes
Medication administered by Provider during Moderate Sedation: IV Propofol (mg)
Total dose administered: 110
Time drug administered: 13:51
<Merary Bowman PA-C - Last Filed: 10/15/24 16:50>
MDM/Problems Addressed
Differential Diagnosis Includes:
Status epilepticus, meningitis, altered mental status, ICH
MDM/Problems Addressed:
isauro hernández 43 y/o M h/o epilepsy; poorly compliant; bz use (prescribed)
from home with gf who witnessed 4 seizures at home, ems witnessed 3 more
he arrived altered and minimally conversive; then combative a more alert but still altered;
febrile
received several doses ativan, 6 mg IV total prior to admission
we sedated him with propofol for LP; fluid looks clear
empiric abx given
lactate 3, wbc 22,
neuro aware; got iv keppra; no other seizures here
ID aware for acyclovir order
ICU
<Merary Bowman PA-C - Last Filed: 10/15/24 16:50>
*Critical Care Note
Total Time (30-74mins, 75-104mins- exclusive of procedures): Not Applicable (90)
comment:
Critical care statement: A total of 90 minutes of critical care time was provided for this patient. This includes management of unstable vital signs, evaluation of the patient at bedside, reviewing the patient's pertinent medical records, discussion
with consultants, review of old EKGs and review of pertinent medical records. This time with separate from time utilized to perform the aforementioned documented procedures
sedation for LP
managing agitation
status epilepticus;
<Merary Bowman PA-C - Last Filed: 10/15/24 16:50>
Patient Management
Social determinants of health affecting care: Living situation and Poor social support
Discussion with other providers: Hospitalist and [employer]
ED Attending Note
<STEVE Johnston Last Filed: 10/15/24 16:50>
-
Portions of this chart may have been created with voice recognition software.� Occasional wrong word or��sound alike� substitutions may have occurred due to the inherent limitations of voice recognition software.
<Cari Curry MD - Last Filed: 10/16/24 08:55>
ED Attending Note
Patient seen and examined by attending physician: Yes
I performed the substantive portion of visit, reviewed & personally made and approve the management plan that is documented in note by myself or OMID.: Yes
ED Attending Note:
43 yr old male with hx of sz d/o presents after mult szs at home and via EMS....given versed by EMS...presents to ED with agitation. hx difficult as a result. intermittent agitation and sleepiness, given sevreal doses of benzos in order to do
workup...given fever, LP done (clear fluid), results pending, covered with abx/antiviral inmeantime. No localizing findings, maee. No further tonic/clonic sz activity noted. Neruo to see, ICU admit.
854 AM 2.18 (update). Note: LP performed by Rivka Bowman and me under procedural sedation, pt supine. First attempt Rivka Bowman unsuccessful, second attempt by myself successful, clear fluid collected, no complications/bleeding. Done under sterile
condtions.
Discharge Plan
Departure
Patient Disposition: Admit
Date of Disposition: 10/15/24
Time of Disposition: 14:19
Admit to: ICU
Presentation/result/management discussed w/ accepting MD/DO: Hospitalist
Condition: Fair
Covid-19: Not Applicable
Discharge Problem:
Post-ictal confusion, Epilepsy with status epilepticus
Interventions
Interventions:
*Risk Screen - Suicide Last Done: 10/15/24 12:23
*General Assessment Last Done: 10/15/24 15:24
*Neglect/Abuse Screening Last Done: 10/15/24 12:23
*ED COVID-19 Vaccine History Last Done: 10/15/24 12:23
*Nursing Disposition Last Done: 10/15/24 18:28
ED- Cardiac Assessment Last Done: 10/15/24 12:31
ED- Neurological Assessment Last Done: 10/15/24 12:32
ED- Pulmonary Assessment Last Done: 10/15/24 12:32
Discharge Date and Time
Discharge Date/Time: 10/15/24 18:29
[2024-10-15 12:37] LABS: Hematocrit 45.1 % (39.0-52.0); Hemoglobin 15.7 g/dL (13.0-18.0); Mean Corp Hgb Conc. 34.8 g/dL (33.0-37.0); Mean Corpuscular Hgb 33.5 pg (27.0-31.0); Mean Corpuscular Volume 96.2 fL (80.0-94.0); Mean Platelet Volume 9.7 fL (7.4-10.4); Platelet Count 276 10^3/uL (130-400); Red Blood Cell Count 4.69 10^6/uL (4.70-6.10); Red Cell Dist. Width 13.3 % (11.5-14.5); White Blood Cell Count 22.7 10^3/uL (4.8-10.8)
[2024-10-15] MEDS: NSS 1000 IV (12:37)
[2024-10-15 12:44] LABS: COVID-19 Antigen Negative (Negative)
[2024-10-15] MEDS: KEPPRA 1000 MG IV (12:44)
[2024-10-15] MEDS: ATIVAN 2 MG IV ×4 (12:44→15:15)
[2024-10-15] MEDS: ATIVAN 1 MG IV ×4 (12:45→23:07)
[2024-10-15 12:51] LABS: % Basophils 0.2 % (0-2); % Immature Granulocytes 0.7 % (0-0.5); % Monocytes 5.5 % (1.7-9.3); % Neutrophils 91.6 % (42.2-75.2); ALT (SGPT) 41 U/L (0-50); AST (SGOT) 36 U/L (17-59); Absolute Basophils 0.1 10^3/uL (0-0.2); Absolute Immature Granulocytes 0.2 10^3/uL (0-0.05); Absolute Lymphocytes 0.5 10^3/uL (1.2-3.4); Absolute Monocytes 1.3 10^3/uL (0.1-0.6); Absolute Neutrophils 20.8 10^3/uL (1.4-6.5); Alkaline Phosphatase 70 U/L (38-126); Blood Urea Nitrogen 11 mg/dl (9-20); Calcium 9.5 mg/dl (8.4-10.2); Carbon Dioxide 18 mmol/L (22-30); Chloride 109 mmol/L (98-107); Glucose 121 mg/dl (70-99); Nucleated Red Blood Cells % 0 % (-); Sodium 140 mmol/L (135-145); Total Bilirubin 0.5 mg/dl (0.2-1.3); Total Protein 7.5 g/dl (6.3-8.2); eGFR > 60.00
[2024-10-15] MEDS: OFIRMEV 1000 MG IV (12:52)
[2024-10-15] MEDS: NSS 700 ML IV (12:58)
[2024-10-15] MEDS: DIPRIVAN 20 MG IV (13:50)
[2024-10-15 13:55] LABS: Creatine Phosphokinase 268 U/L (55-170); Magnesium 2.7 mg/dl (1.6-2.3)
[2024-10-15 13:58] LABS: Alcohol None Detected
[2024-10-15 14:15] LABS: Urine Albumin 2+ (Neg - Trace); Urine Bilirubin Negative (Negative); Urine Character Clear (Clear); Urine Color Yellow; Urine Glucose Negative (Negative); Urine Ketone 1+ (Negative); Urine Leukocyte Negative (Negative); Urine Nitrite Negative (Negative); Urine Occult Blood 4+ (Negative); Urine Urobilinogen Negative (Neg - 1+)
[2024-10-15 14:24] LABS: Urine Mucus Few; Urine Squamous Cell 0-2 /LPF (Few)
[2024-10-15 14:25] LABS: Urine Bacteria Few (Negative); Urine Hyaline Cast 0-2 /LPF (0-2); Urine Red Blood Cell 0-2 /HPF (0-2)
[2024-10-15 14:34] LABS: Amphetamines Negative (Negative); Barbiturates Negative (Negative); Benzodiazepines Negative (Negative); Buprenorphine Negative (Negative); Cocaine Negative (Negative); Marijuana Positive (Negative); Methadone Negative (Negative); Methamphetamines Negative (Negative); Opiates Negative (Negative); Phencyclidine Negative (Negative); Tricyclic Antidepressants Negative (Negative)
--- NOTE | 2024-10-15 14:53 | EDRN ---
Pt is still sedated... he had received MULITPLE DOSES of Ativan AND propofol. Before this, he was agitated and combative. Now he wakes but still becomes confused. He cannot get out of bed as his underluing condition precludes him from doing so. He
has not been at his ' baseline' since arrivl as he is neurologically impaired. His resp status is normal at this time
[2024-10-15] MEDS: ZOVIRAX INJECTION 110 MG IV (15:15)
[2024-10-15 15:32] LABS: CSF Clarity Hazy; CSF Color Colorless; CSF Tube # 1; Red Cell Count/CSF 494 mm^3; White Cell Count/CSF 2 mm^3 (0-5)
[2024-10-15 15:33] LABS: CSF Clarity Clear; CSF Color Colorless; CSF Tube # 4
[2024-10-15 15:34] LABS: Red Cell Count/CSF 4 mm^3; White Cell Count/CSF 2 mm^3 (0-5)
--- NOTE | 2024-10-15 15:56 | HPS.HSE ---
Family Physician
-
Family Physician: NOT KNOW UNKNOWN - PT DOES
Chief Complaint
-
multiple witnessed Szs
History of Present Illness
43M from home HX epilepsy; poorly compliant; Chronic prescription BZD use z use (prescribed)
- [facility] for witnessed 4 seizures at home and 3 more during EMS transport
- arrived altered and minimally conversive then combative a more alert but still altered
- febrile at ER
- At ER Propofol sedation and LP'd by ER attd
- s/p total 10 mg IV Ativan by ER over approx 3 hrs
- lactate 3, wbc 22
-
No other seizures in ER
Medical History
Past Medical History
Past Medical History: Reports Seizures, Psychiatric (depression ) and Other (non compliance with meds )
Past Surgical History: Reports None
Social History
Unable to obtain full social history at this time due to: Other
Tobacco: Other
Drug: Marijuana (medical )
Family History
Family History: Not pertinent
Allergies / Home Medications
Allergies reflects when Allergies were last updated in [employer].
Home Medications with original date entered in [employer]
Allergy/Medication List:
Allergies
Allergy/AdvReac Type Severity Reaction Status Date / Time
gabapentin [From Neurontin] Allergy sz Verified 09/24/24 07:13
Home Medications
clonazepam 1 mg tablet 1.5 mg PO BID 08/17/24
levetiracetam 500 mg tablet (Keppra) 500 mg PO BID #20 tabs 08/20/24
levetiracetam 1,000 mg tablet (Keppra) 1,000 mg PO HS #30 tabs 09/24/24
Medical Marijuana DAILYPRN PRN anxiety 10/15/24
escitalopram oxalate 10 mg tablet (Lexapro) 10 mg PO DAILY 10/15/24
Review of Systems
-
Unable to obtain full review of systems at this time due to: Acuity
Physical Exam
Vital Signs
Vital Signs
Temp Pulse Resp BP Pulse Ox
98.4 F 91 20 146/99 96
10/15/24 14:50 10/15/24 15:00 10/15/24 14:51 10/15/24 15:15 10/15/24 15:15
Physical Exam
General: Other (restless, confused , awake , took off all clothes )
HEENT: NormoCephalic and Anicteric
Respiratory: Clear
Cardiac: S1/S2 and Regular Rhythm
Breast: Deferred by me
GI: Soft, Non Tender, Non Distended and Normal Bowel Sounds
Musculoskeletal: No Edema
Skin: Warm and Dry
Neuro: Awake and Alert
Psych: Confused
Laboratory Results
-
10/15/24 12:16
10/15/24 12:16
Laboratory Results
Lactic Acid 3.0 mmol/L (0.7-2.0) H 10/15/24 12:16
Total Bilirubin 0.5 mg/dl (0.2-1.3) 10/15/24 12:16
AST 36 U/L (17-59) 10/15/24 12:16
ALT 41 U/L (0-50) 10/15/24 12:16
Alkaline Phosphatase 70 U/L (38-126) 10/15/24 12:16
Data Reviewed
-
CT Scan: Report Reviewed by me
Lab Data: Labs Reviewed by me
Impression/Plan
-
Reviewed VS:
Vital Signs
Temp Pulse Resp BP Pulse Ox
98.4 F 91 20 146/99 96
10/15/24 14:50 10/15/24 15:00 10/15/24 14:51 10/15/24 15:15 10/15/24 15:15
Data
Laboratory Tests
10/15/24 10/15/24
12:16 13:49
WBC 22.7 H
eGFR > 60.00
Glucose 121 H
Lactic Acid 3.0 H
Magnesium 2.7 H
Creatine Kinase 268 H
Levetiracetam Pending
U Benzodiazepines Scrn Negative
U Marijuana (THC) Screen Positive H
Alcohol, Quantitative None detected
SARS-CoV-2 Antigen Negative
No prior hospitalist admission:
ASSESSMENT & PLAN
Recurrent Sz concerning for status epilepticus
Post ictal agitation and restlessness
Suspect Clonazepam withdrawal Sz
Non compliance with AEDs
NEG HCT
Hi tolerance to BZDs
- IV Ativan 1mg q4hr PRN for break thru Sz
- cont IV Keppra 500mg q12H
- Neuro consulted
Fever , Leucocytosis and Hi LA DDx: Non infectious origin due to Sz vs Infectious
- Clear CSF per ER attd
- c/w empiric IV Acyclovir 400mg q8h
- ID consult
Depression
- on Lexapro
DVT Px: SQH
Code: Full code
IMU
[2024-10-15 17:24] LABS: Spinal Fluid Glucose 82 mg/dl (40-70); Spinal Fluid Protein 61 mg/dl (12-60)
--- NOTE | 2024-10-15 17:37 | CON.NEURO ---
Consultation
Order
Date of Consultation: 10/15/24
Requesting Provider: Bryon Alfonso MD
Reason for Consult: seizure
Neurology Consultation Note.
HPI: This is a 43-year-old man who presented to [facility] on 10/15/2024 with seizure cluster.
According to EMR patient missed his dose of Klonopin on Keppra last night.
ER VS: 155/93-160/97, 91, Tmax�38.2C.
EKG:NSR, QTc Int : 394 ms
PDMP:Clonazepam 1 Mg�90 tabs filled in on 09/15/2024, 45 tabs filled in on 09/02/2024, 08/21/2024.
Labs: glucose 121, WBC 22.7, absolute lymph count 0.5, normal Na, Cr, lactic acid 2.7, CK 268, ua tox: positive for THC neg, neg for BZ
CSF(10/15/2024) glucose 82, protein 61
Brain MRI w/wo sammi(09/02/2024)
1. Nonenhancing transcortical encephalomalacia in the lateral right temporal lobe and mild encephalomalacia in the lateral right frontal lobe: chronic hemorrhagic transcortical infarcts vs posttraumatic encephalomalacia.
2. Chiari I malformation.
3. Mild white matter disease.
Prior AED: Trileptal, Depakote,
MAR: Lorazepam 9 mg total, Keppra�1000 mg once, Zovirax 500 mg�once, propofol 20 mg once
PMH: Epilepsy, right temporal encephalomalacia, SAMMI, cannabis addiction, medication nonadherence
PSH: Ankle surgery
SH:active smoker
All:gabapentin
ROS: limited due to encephalopathy
General: Restrained, intermittently agitated
Cardio: Regular rate . Extremities are without cyanosis or edema.
Neuro:
Mental Status: Awake, oriented to name, disinhibited.
Cranial Nerves: Left exotropia in primary gaze. Limited extraocular movement exam due to cooperation. Blink to threat bilaterally. No facial weakness, hearing preserved. Mild to moderate dysarthria including edentulous.
Motor: Moves all limbs antigravity symmetrically
Reflexes: Limited exam due to cooperation and restraints
Sensory: Limited exam due to poor attention
Coordination: No tremors or myoclonic movements.
Gait: deferred
Assessment and Plan:
I. Multifactorial encephalopathy (postictal, toxic, infectious)
II. Chronic right temporal encephalomalacia (vascular versus post traumatic)
III. 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
IV. Chiari I malformation.
-Seizure precautions
-Aspiration precautions.
-please check TSH, free T4, Mg, HIV
-Continue Thiamine 100 mg QD IV, Nicotine patch
-Brain MRI wo sammi if no clinical improvement
-EEG-Ativan 2 mg PRN for seizures lasting over 2 minutes.
-Will obtain collateral history from patient's family
-ASA 81mg QD
-IV acyclovir until HSV PCR is negative.
-DVT prophylaxis.
I personally reviewed all radiology and labs along with past medical records pertinent to current medical problems. Total time spent in patient care is 60 minutes.
Thank you for allowing us to participate in the care of this patient. We will continue to follow. Please do not hesitate to contact us with any questions or concerns.
Subjective/Objective
Subjective Data
Date of Service: October 15, 2024
Objective Data
Vital Signs
Temp Pulse Resp BP Pulse Ox
36.9 C 91 20 147/92 99
10/15/24 14:50 10/15/24 15:00 10/15/24 14:51 10/15/24 16:30 10/15/24 16:24
Lab Results
10/15/24 12:16
10/15/24 12:16
Sodium 140 mmol/L (135-145) 10/15/24 12:16
Potassium 5.0 mmol/L (3.5-5.1) 10/15/24 12:16
BUN 11 mg/dl (9-20) 10/15/24 12:16
Glucose 121 mg/dl (70-99) H 10/15/24 12:16
Calcium 9.5 mg/dl (8.4-10.2) 10/15/24 12:16
Ur Buprenorphine Negative (Negative) 10/15/24 13:49
Patient Allergies
gabapentin [From Neurontin] Allergy (Verified 09/24/24 07:13)
sz
Medications
-
Active Medications
Generic Name Dose Route Start Last Admin
Trade Name Freq PRN Reason Stop Dose Admin
Bisacodyl 10 mg 10/15/24 17:06
Bisacodyl 10 Mg Rectal Suppository RECTAL 11/12/24 17:05
[id number] PRN
constipation
Clonazepam 1.5 mg 10/15/24 20:00
Clonazepam 1 Mg Tablet PO 11/12/24 19:59
BID EVERT
Heparin Sodium 5,000 units 10/15/24 20:00
Heparin 5,000 Units/Ml 1 Ml Vial SC 11/12/24 19:59
Q12 EVERT
Acyclovir Sodium 400 mg/ 108 mls @ 100 mls/hr 10/16/24 00:00
Sodium Chloride IV 10/26/24 00:00
Q8H EVERT
Levetiracetam 500 mg 10/15/24 20:00
Levetiracetam (100 Mg/Ml) 500 Mg/5 Ml Vial IV 11/12/24 19:59
Q12 EVERT
Polyethylene Glycol 17 grams 10/15/24 17:06
Polyethylene Glycol Powder 17 Grams Packet PO 11/12/24 17:05
DAILYPRN PRN
constipation
Senna/Docusate Sodium 1 tablet 10/15/24 17:06
Docusate W/Senna (Salud-Colace) Tablet PO 11/12/24 17:05
BIDPRN PRN
constipation
Sodium Chloride 0 flush 10/15/24 18:00
Sodium Chloride 0.9% (Flush) Syringe IV 11/12/24 17:59
PER PROTOCOL EVERT
Home Medications
�Medication �Instructions �Recorded
clonazepam 1 mg tablet 1.5 mg PO BID 08/17/24
levetiracetam 500 mg tablet 500 mg PO BID #20 tabs 08/20/24
(Keppra)
levetiracetam 1,000 mg tablet 1,000 mg PO HS #30 tabs 09/24/24
(Keppra)
Medical Marijuana DAILYPRN PRN anxiety 10/15/24
escitalopram oxalate 10 mg tablet 10 mg PO DAILY 10/15/24
(Lexapro)
Vital Signs and Labs
-
Vital Signs and Labs:
Vital Signs
Temp Pulse Resp BP Pulse Ox
36.9 C 91 20 147/92 99
10/15/24 14:50 10/15/24 15:00 10/15/24 14:51 10/15/24 16:30 10/15/24 16:24
Lab Results
10/15/24 12:16
10/15/24 12:16
Sodium 140 mmol/L (135-145) 10/15/24 12:16
Potassium 5.0 mmol/L (3.5-5.1) 10/15/24 12:16
BUN 11 mg/dl (9-20) 10/15/24 12:16
Glucose 121 mg/dl (70-99) H 10/15/24 12:16
Calcium 9.5 mg/dl (8.4-10.2) 10/15/24 12:16
Ur Buprenorphine Negative (Negative) 10/15/24 13:49
Medications
-
Medications:
Generic Name Dose Route Start Last Admin
Trade Name Freq PRN Reason Stop Dose Admin
Bisacodyl 10 mg 10/15/24 17:06
Bisacodyl 10 Mg Rectal Suppository RECTAL 11/12/24 17:05
[id number] PRN
constipation
Clonazepam 1.5 mg 10/15/24 20:00
Clonazepam 1 Mg Tablet PO 11/12/24 19:59
BID EVERT
Heparin Sodium 5,000 units 10/15/24 20:00
Heparin 5,000 Units/Ml 1 Ml Vial SC 11/12/24 19:59
Q12 EVERT
Acyclovir Sodium 400 mg/ 108 mls @ 100 mls/hr 10/16/24 00:00
Sodium Chloride IV 10/26/24 00:00
Q8H EVERT
Levetiracetam 500 mg 10/15/24 20:00
Levetiracetam (100 Mg/Ml) 500 Mg/5 Ml Vial IV 11/12/24 19:59
Q12 EVERT
Polyethylene Glycol 17 grams 10/15/24 17:06
Polyethylene Glycol Powder 17 Grams Packet PO 11/12/24 17:05
DAILYPRN PRN
constipation
Senna/Docusate Sodium 1 tablet 10/15/24 17:06
Docusate W/Senna (Salud-Colace) Tablet PO 11/12/24 17:05
BIDPRN PRN
constipation
Sodium Chloride 0 flush 10/15/24 18:00
Sodium Chloride 0.9% (Flush) Syringe IV 11/12/24 17:59
PER PROTOCOL EVERT
Home Medications
-
Home Medications
clonazepam 1 mg tablet 1.5 mg PO BID 08/17/24
levetiracetam 500 mg tablet (Keppra) 500 mg PO BID #20 tabs 08/20/24
levetiracetam 1,000 mg tablet (Keppra) 1,000 mg PO HS #30 tabs 09/24/24
Medical Marijuana DAILYPRN PRN anxiety 10/15/24
escitalopram oxalate 10 mg tablet (Lexapro) 10 mg PO DAILY 10/15/24
--- NOTE | 2024-10-15 18:35 | PTCARENOTE ---
Patient received from ED escorted with security. Patient extremely agitated, yelling and flailing in the bed. Trying to calm patient, patient was getting more and more agitated. B/L wrist restrains maintained and B/L ankle restraints applied and
requested to be ordered. Attending messaged and an order of ICU was placed.
After getting patient settle, he does appear to calm but still not following commands. Attempted to get admission questions done with patient but not cooperative and unable to complete at this time.
[2024-10-15] MEDS: NSS (PRESERVATIVE FREE) 0.05 ML IV (20:29)
[2024-10-15] MEDS: KEPPRA 500 MG IV (20:35)
[2024-10-15] MEDS: PRECEDEX 100 IV (20:48)
[2024-10-15] MEDS: NSS (PRESERVATIVE FREE) 10 ML IV (20:51)
[2024-10-15] MEDS: HEPARIN 5000 UNITS SC (20:58)
--- NOTE | 2024-10-15 21:00 | PTCARENOTE ---
rec`d pt from IMU. verbally yelling out loud, agitated and cursing. 4 point restraints. SR on monitor. hr 60s-80s. becomes tachy low 100s when aggitated. RA POX 96%. afebrile. diminished lung sounds. #[address] draining john urine. rt FA and
rt w PIVs flushed and patent. safe environment maintained.
--- NOTE | 2024-10-15 21:15 | PTCARENOTE ---
2114, precedex gtt started, q4 ativan scheduled.
[2024-10-15 23:08] LABS: TSH Reflex To Free T4 0.39 uIU/ml (0.47-4.68)
[2024-10-16] VITALS (37 sets, daily range): BP systolic 89–131; BP diastolic 66–97; PULSE 38–57; BMI 18.6
[2024-10-16] MEDS: ZOVIRAX INJECTION 108 MG IV ×2 (00:22→08:11)
[2024-10-16] MEDS: PRECEDEX 100 IV (03:59)
[2024-10-16] MEDS: VERSED 2 MG IV ×2 (04:03→04:04)
[2024-10-16] MEDS: ATIVAN 1 MG IV ×4 (04:04→16:14)
[2024-10-16 04:29] LABS: Hematocrit 40.8 % (39.0-52.0); Hemoglobin 14.3 g/dL (13.0-18.0); Mean Corpuscular Volume 96.9 fL (80.0-94.0); Platelet Count 248 10^3/uL (130-400); Red Blood Cell Count 4.21 10^6/uL (4.70-6.10); Red Cell Dist. Width 13.2 % (11.5-14.5); White Blood Cell Count 14.5 10^3/uL (4.8-10.8)
--- NOTE | 2024-10-16 05:12 | PTCARENOTE ---
severe agitation while doing hygiene on pt. kicking and trying to grab staff. incontinent of urine. two versed stat orders given. Precedex gtt titrated. screaming and cursing at staff. pt stating he wants to go to work.
[2024-10-16 05:21] LABS: Blood Urea Nitrogen 19 mg/dl (9-20); Calcium 8.9 mg/dl (8.4-10.2); Carbon Dioxide 15 mmol/L (22-30); Chloride 114 mmol/L (98-107); Estimated Creatinine Clearance 93 ml/min; Glucose 98 mg/dl (70-99); Potassium 3.9 mmol/L (3.5-5.1); Sodium 145 mmol/L (135-145); eGFR > 60.00
[2024-10-16 05:43] LABS: APTT 29.8 Sec (23.4-35.0); INR 1.19; PT 15.4 Sec (11.4-14.6)
--- NOTE | 2024-10-16 07:15 | CON.INTV ---
Consultation
Consultation Request
Date/Time Consultation Requested: 10/15/24
Date/Time Consultation Performed: 10/16/24
Performing Provider: Josué
Reason for Consultation: ICU
Medical History
-
History of Present Illness:
Patient is a 43-year-old male with previous history of epilepsy, poorly compliant, chronic prescription benzodiazepine use presenting to ER with 4 separate episodes of witnessed seizures at home. EMS was notified, he had 3 more episodes during
transport. Arrived in the ER with altered mental status. Underwent LP in the ER under sedation. Developed worsening agitation and violent behavior throughout the evening. He is now admitted to ICU on Precedex and on restraints.
Of note, he has had numerous ER visits in the past year for noncompliance with medications and seizure episodes: 09/24/24, 08/20/24, 08/17/24, 05/22/24, 05/15/24, 05/11/24, 05/10/24, 03/16/24.
Past Medical History
Past Medical History: Other
Social History
Tobacco: Smoker
Alcohol: None
Drug: None
Family History
Family History: Reviewed & Not Pertinent
Allergies / Home Medications
Allergies
Allergy/AdvReac Type Severity Reaction Status Date / Time
gabapentin [From Neurontin] Allergy sz Verified 09/24/24 07:13
Home Medications
�Medication �Instructions �Recorded �Confirmed �Last Taken �Type
clonazepam 1 mg tablet 1.5 mg PO BID 08/17/24 10/15/24 Unknown History
levetiracetam 500 mg tablet 500 mg PO BID #20 tabs 08/20/24 09/24/24 Unknown Rx
(Keppra)
levetiracetam 1,000 mg tablet 1,000 mg PO HS #30 tabs 09/24/24 10/15/24 Unknown Rx
(Keppra)
Medical Marijuana DAILYPRN PRN anxiety 10/15/24 Unknown History
escitalopram oxalate 10 mg tablet 10 mg PO DAILY 10/15/24 Unknown History
(Lexapro)
Review of Systems
-
History Source: Patient
All other systems: Negative unless noted
Vitals / Labs / Diagnostic Testing
Vital Signs
Temp Pulse Resp BP Pulse Ox
98.9 F 52 16 120/84 96
10/16/24 05:00 10/16/24 05:30 10/16/24 05:30 10/16/24 05:30 10/16/24 05:30
Lab Data
10/16/24 04:14
10/16/24 04:14
Laboratory Results
10/16/24
04:14
PT 15.4 H
INR 1.19
APTT 29.8
Microbiology
10/15/24 14:36 Csf Meningitis/Encephalitis Panel (PCR) - Final
10/15/24 14:37 Csf Gram Stain - Preliminary
10/15/24 12:16 Nasal Swab Influenza Types A & B (BLAISE) - Final
Negative for Influenza A & B, NAAT
Negative results must be combined with clinical observations
and patient history.
Nucleic Acid Amplification test (NAAT)performed on the
[employer] platform.
Diagnostic Testing:
Physical Exam
-
HEENT: Normocephalic, Anicteric and Moist Mucous Membranes
Cardiovascular: S1/S2 and Regular Rhythm
Respiratory: Clear and Non-Labored Respirations
GI: Soft, Non Distended and Non Tender
Neurology: Awake, Alert, Oriented, No Motor Deficits and Other (in restraints)
Skin: Warm, Dry and Good Color
General: Comfortable and Other (NAD)
Assessment
-
Patient is a 43-year-old male with previous history of epilepsy, poorly compliant, chronic prescription benzodiazepine use presenting to ER with 4 separate episodes of witnessed seizures at home. EMS was notified, he had 3 more episodes during
transport. Arrived in the ER with altered mental status. Underwent LP in the ER under sedation. Developed worsening agitation and violent behavior throughout the evening. He is now admitted to ICU on Precedex and on restraints.
Acute seizures/witnessed
Post ictal on arrival to ER
Violent behavior/psychosis in restraints
Noncompliance with numerous ER visits for similar
Leukocytosis
Met acidosis
Conditions present BRADDER
ER visits for Seizure/noncompliance: 09/24/24, 08/20/24, 08/17/24, 05/22/24, 05/15/24, 05/11/24, 05/10/24, 03/16/24.
Epilepsy
Recent incarceration
BZ dependence/WD
Chronic right temporal encephalomalacia
Chiari I malformation
SAMMI
Cannabis addiction
Ankle surgery
Current smoker
Plan
No current signs of metabolic encephalopathy or MS changes/following commands
Angry and violent in restraints, 1:1
Code purple called for security
Denies pain at this time.
Seizures due to noncompliance, LP negative for meningitis
HCT neg
Pain/sedation: PRN
RASS goals: 0
Hemodynamically stable, not requiring pressors.
Cardiac history reviewed--none
Monitor on telemetry
Oxygen needs: on RA
Prior history of lung disease: none
Supplemental O2 as indicated to maintain sats > 89%
Current smoker, smoking cessation recommended
No chest imaging
NPO, resume diet when able
Aspiration precautions, HOB > 30 degrees
Speech therapy eval can be considered if at elevated risk
GI prophylaxis if indicated for mechanical ventilation >48 hours, prior history of GERD, stress ulcer formation in the critically ill
Creat at baseline, no history of renal disease
Void trials
Follow urine output, critical I/Os
Replete electrolytes as needed
No signs/symptoms suspicious for infectious etiology at this time
Observe off antibiotics for now
Follow fever trend, WBC count
CBC stable, no signs of bleeding or coagulopathy.
DVT prophylaxis as assessed based on risk, including mechanical SCDs
Can transfuse if indicated for Hb <7, plt < 10
No prior h/o diabetes or thyroid disease
Monitor accuchecks PRN/SS coverage if needed
If there is no other medical issues to treat, would recommend discharge pending psych eval.
Diagnostic Data
Chest X-Ray:
CT Scan: HCT 10/15/24- No acute intracranial abnormality noted
Brain MRI w/wo sammi(09/02/2024)
1. Nonenhancing transcortical encephalomalacia in the lateral right temporal lobe and mild encephalomalacia in the lateral right frontal lobe: chronic hemorrhagic transcortical infarcts vs posttraumatic encephalomalacia.
2. Chiari I malformation.
3. Mild white matter disease.
Echo:
PFT's:
Reports and relevant images were personally reviewed.
Critical Care time 81 mins -- The patient is admitted for acute critical illness for the treatment of vital organ failure and/or prevention of further life-threatening conditions. Total care includes time spent in review of history, physical exam,
medications, hemodynamic/ventilator parameters, laboratory data, imaging and discussion with house staff, pharmacy, respiratory therapy, certified juvenile probation officer, and nursing.
--- NOTE | 2024-10-16 07:51 | PTCARENOTE ---
Pt rec'd from night RN at 07:15, on walking rounds pt awake and angrily answering staff when asked if he knew where he was 'Why do you keep asking me that, you don't listen.' Asking for blanket, 'I'm freezing.' Rougon provided, calm / quiet
environment maintained. Precedex gtt infusing at 0.2 mcg/kg/min. Assessment and meds per worklist-see documentation. Safe environment maintained.
[2024-10-16] MEDS: NSS (PRESERVATIVE FREE) 1 ML IV (08:10)
[2024-10-16] MEDS: HEPARIN SC (08:11)
[2024-10-16] MEDS: THIAMINE INJECTION 100 MG IV (08:12)
[2024-10-16] MEDS: KEPPRA 500 MG IV (08:12)
--- NOTE | 2024-10-16 08:51 | PTCARENOTE ---
Pt awakened by RN for am medication administration. Plan of care discussed by RN, asked permission to touch patient for routine assessment and meds. Pt refused Nicotine patch and SQ Heparin injection, then suddently became extremely agitated,
verbally abusive to RN calling names using multiple expletives, screaming, smacking hands against siderail, pulling at restraints, sitting bolt upright in bed stating 'you did this to me, you're retarded, you stupid F*&ing C#@t, I want to go home!'
etc etc. Precedex gtt titrated to 0.4 mcg/kg/hr for RASS score +4. along with all other scheduled IV medications. mill set up in room to maintain safety, nazanin delacruz called. As soon as multiple security staff members arrived in room, pt quieted self
and closed eyes, peeking out from half-closed eyes occasionally. Mitts applied. 4 pt soft restraints and mask remain in place. Per Gift Basket Packer, plan discussed, will discharge when medically cleared per neurology.
--- NOTE | 2024-10-16 09:07 | CON.ID ---
Consultation
-
Date/Time Consultation Requested: 10/15/24 17:06
Date/Time Consultation Performed: 10/16/24 9:08
Requesting Provider: Dr Alfonso
Performing Provider: Dr Colby
Reason for Consultation: 'Rcurrent Sz, eval for CNC infection'
Chief Complaint / Past History
Chief Complaint
multiple witnessed seizures
History of Present Illness
Mario is a 43 year old male with history of epilepsy and status epilepticus, noncompliance who presented here on 10/15 for 4 witnessed seizures at home. Girlfriend states missed scheduled keppra and klonoprin. While undergoing transport with
EMS had 3 further witnessed seizures. Seizures began around 2Am. Was post-ictal after seizures. No recent trauma or illness. On arrival was unable to provide a history.
Since arrival here patients Tmax has been 100.8, bp stable, HR 40-80s, WBC initially 22 now 14.5, hgb 14.3, plt 248, L shift was noted on arrival, ESR 2, cr 0.8, lactic acid initially 3.0, LFTs wnl, CRP sent, urine no pyuria and few bacteria, LP
preformed and WBC count 2, glucose 80, protein essentially normal at 61 with normal range up to 60, UDS + THC, a lyme serology was sent by primary team and is pending, CT head: no abnormality, MRI brain last done here 09/12/24 about 1 month ago:
encephalomalacia and chiari I malformation, single blood culture was sent, meningitis pcr panel negative, influneza pcr negative, covid pcr negative, csf culture no organisms on gram stain. Today 10/16 he is alert and able to provide a history
though he is not a coorporative historian. Denies: headache, sinus tenderness, sore throat, cough, nausea, vomiting, diarrhea, dysuria, new rashes, recent tick bites. 'I work outside' but refuses to be more specific than outside. Patient
terminantes the interview at this point - 'just leave me alone!'
Past History
Additional Past Medical History:
Seizures, Psychiatric (depression ) and Other (non compliance with meds)
Past Surgical History: None
Allergy History:
gabapentin [From Neurontin] Allergy (Verified 09/24/24 07:13)
sz
Medications Reviewed: Yes
Social History
Tobacco: Other
Alcohol: Other (patient refuses to answer further questions, unable to obtain)
Drug: Marijuana (prescribed)
Family History
Family History: Not Pertinent
Review of Systems
Review of Systems
unable to obtain due to patient refusal - see HPI for ID focused ROS
Vital Signs
Temp Pulse Resp BP Pulse Ox
98.9 F 47 15 109/77 97
10/16/24 05:00 10/16/24 07:30 10/16/24 07:30 10/16/24 07:30 10/16/24 07:00
Physical Exam
Physical Exam
Constitutional: No Acute Distress, Non-toxic, Cachetic and Other (refused physical exam 'just let me rest!')
Cardiovascular: Regular Rate
Pulmonary: Symmetric and Non Labored
Gastrointestinal: Non Distended
Skin: Negative Rash or Jaundice
Neurological: Awake and Alert
Psychological: Agitated (in restraints)
Lab / Diagnostic Study Results
10/16/24 04:14
10/16/24 04:14
Abs Immat Gran (auto) 0.2 10^3/uL (0-0.05) H 10/15/24 12:16
Absolute Neuts (auto) 20.8 10^3/uL (1.4-6.5) H 10/15/24 12:16
Absolute Lymphs (auto) 0.5 10^3/uL (1.2-3.4) L 10/15/24 12:16
Absolute Monos (auto) 1.3 10^3/uL (0.1-0.6) H 10/15/24 12:16
Absolute Basos (auto) 0.1 10^3/uL (0-0.2) 10/15/24 12:16
Immature Gran % 0.7 % (0-0.5) H 10/15/24 12:16
Neutrophils % 91.6 % (42.2-75.2) H 10/15/24 12:16
Lymphocytes % 2.0 % (20.5-51.1) L 10/15/24 12:16
Monocytes % 5.5 % (1.7-9.3) 10/15/24 12:16
Eosinophils % 0.0 % (0-6) 10/15/24 12:16
Basophils % 0.2 % (0-2) 10/15/24 12:16
ESR Cancelled 10/16/24 08:32
PT 15.4 Sec (11.4-14.6) H 10/16/24 04:14
INR 1.19 10/16/24 04:14
Lactic Acid 3.0 mmol/L (0.7-2.0) H 10/15/24 12:16
Ur Squamous Epith Cells 0-2 /LPF (Few) 10/15/24 13:49
Microbiology Results
Micro:
10/15/24 12:16 Blood Culture - Pending
Blood/Venous
10/15/24 14:36 Meningitis/Encephalitis Panel (PCR) - Final
Csf
10/15/24 14:37 CSF Culture - Pending
Csf Gram Stain - Preliminary
10/15/24 12:16 Influenza Types A & B (BLAISE) - Final
Nasal Swab Negative for Influenza A & B, NAAT
Negative results must be combined with clinical observations
and patient history.
Nucleic Acid Amplification test (NAAT)performed on the
[employer] platform.
Assessment / Plan
Ruled out Meningitis/Infectious Encephalitis
Fever - likely secondary to seizure
Seizures
Seizure Disorder
- CSF was normal, meningitis panel negative
- stopped acyclovir - HSV/VZV PCRs are negative
- lyme serologies sent by primary team, note lyme is endemic in this region and prior resolved infection a real possibility if testing is positive
- fever and leukocytosis likely related to recent seizures
[2024-10-16 09:16] LABS: Erythrocyte Sed Rate 2 mm/hour (0-20)
--- NOTE | 2024-10-16 10:00 | PTCARENOTE ---
1:1 ordered -PCT arrived to sit with patient, observing behavior.
EEG completed -pt tolerated. Plan discussed with Resident Dr. Fournier, Neurologist Dr. Ray. Safe environment maintained.
--- NOTE | 2024-10-16 10:06 | W.PN.HOSP.TC ---
Addendum entered and electronically signed by Carson Gonzalez MD 10/16/24 23:24:
Attending Addendum:
I saw and evaluated the patient. I reviewed the resident�s note and agree with findings and plan as documented in the resident�s note. Sub: Patient placed in restarting due to threatening and aggresive behvavior. 'They are laughing at me!' Cussing
and flailing arms and legs. refusing to be examined. Full 12 point ROS reviewed and negative except as documented as able Exam: Vitals reviewed in chart - patient refusing exam agitated and threatening in restraints
Plan:
#Recurrent Sz concerning for status epilepticus
#Post ictal agitation and restlessness
#Suspect Clonazepam withdrawal Sz
#Non compliance with AEDs
NEG HCT
Hi tolerance to BZDs
-restart meds
-refusing all other interventions ie MRI
-Neuro consulted - EEG WNL
# Severe Agitation and Threatening behavior
-AAOx 3
-DC precedex and standing IV ativan
-Appreciate psych c/s- patient has capacity to make own decisions
-from benzo wd and med noncompliance
-restart PO meds
-stable for DC
# Fever , Leucocytosis and Hi LA DDx: Non infectious origin due to Sz
- Clear CSF elevated gluc and protein
- DC Acyclovir- HSV neg
- ID consult appreciated ok for DC no indication for abx
# Depression
- on Lexapro
DVT Px: SQH
Code: Full code
Dispo DC home patients PDMP reviewed d/w PCP re follow UP
threatening and violent behavior- D/W all parties involved in patients medical care- all parties in agreement to DC home with safe DC plan
Time spent coordinating care, DC planning, review of DC plan of care with resident, transition of care, review of records, med rec/scripts sent electronically, consults, notes, d/w consultants, nursing, PCP nursing polymerization supervisor psych ICU and CM� 40
mins
Original Note:
Today's Communication/Plan
-
Psych consult
Control of agitation
Potential discharge later today
Assessment / Plan
Assessment / Plan
43-year-old male with past medical history of epilepsy following head trauma, came in with EMS after girlfriend witnessed multiple seizures with loss of consciousness at home. Patient was febrile at arrival. Received 3 doses of Versed. Girlfriend
mention he had missed Klonopin and Keppra. On admission, lactate elevated at 3, CK elevated, white count 22. Blood glucose glucose and sodium within normal limits.
Assessment and plan
#Seizure disorder noncompliant with meds
-Possibly status epilepticus but seizures not witnessed during hospitalization
-Urine drug screen positive only for THC�negative for benzo�patient may be undergoing benzo withdrawal
-Head CT unremarkable for any acute pathology
-Haldol 2 mg IV stat given for increased agitation and violence (QTc wnl)
-Patient remains very combative and agitated but has not had any seizures since admission
-Continue IV Ativan 1mg q4hr PRN
-Currently on Precedex protocol
-Continue IV Keppra 500mg q12H
-Restraints 4pt
- Neuro consulted-started aspirin
Brain MRI:
1. Moderate transcortical encephalomalacia in the lateral right temporal lobe and mild encephalomalacia in the lateral right frontal lobe. Diagnostic possibilities are (1) chronic hemorrhagic transcortical infarcts or (2) chronic traumatic brain
injury.
2. Chiari I malformation.
3. Mild white matter disease.
-Psych consulted
# SIRS positive on admission
- CSF was normal, meningitis panel negative
- stopped acyclovir - HSV/VZV PCRs are negative
- lyme serologies pending
- fever and leukocytosis likely related to recent seizures
- Clear CSF per ER attd
- Appreciate ID
Depression
- on Lexapro
DVT Px: Heparin every 12hours
Code: Full code
Anticipated Discharge: Today
Subjective/Interval History
-
Date of Service: October 16, 2024
Patient is very agitated and violent. Does not allow any physical exam. However is awake, alert and oriented.
Objective Data
-
Labs:
Laboratory Results
10/16/24
04:14
WBC 14.5 H
Hgb 14.3
Hct 40.8
Plt Count 248
PT 15.4 H
INR 1.19
APTT 29.8
Sodium 145
Potassium 3.9
Chloride 114 H
Carbon Dioxide 15 L
BUN 19
Creatinine 0.8
Glucose 98
Calcium 8.9
Vital Signs:
Vital Signs
Temp Pulse Resp BP Pulse Ox
98.9 F 65 13 107/74 98
10/16/24 05:00 10/16/24 09:00 10/16/24 09:00 10/16/24 09:00 10/16/24 09:00
I&O
10/15/24 10/16/24 10/17/24
06:59 06:59 06:59
Intake Total 59.2 / 62.0 111.1 / 111.1
Output Total 400 / 400
Balance -340.8 / -338.0 111.1 / 111.1
Review of Systems
-
Unable to obtain full review of systems at this time due to: Acuity and Other (Patient refusal)
Physical Exam
-
General: Other (Physical exam limited due to patient not cooperating)
[2024-10-16] MEDS: NSS (PRESERVATIVE FREE) 10 ML IV ×2 (11:20→16:14)
--- NOTE | 2024-10-16 11:20 | PTCARENOTE ---
Pt awakened and offered food or drink by RN, he became immediately agitated once again, screaming at RN and PCT in room, escalating; again calling staff names and using multiple profanities, pulling against restraints, removing mitts, arrived in
room, Stat dose Haldol ordered, psych consult placed. Rounds completed, plan of care discussed.
[2024-10-16] MEDS: HALDOL 2 MG IV ×3 (11:30→16:43)
--- NOTE | 2024-10-16 12:18 | W.PN.NEURO.1 ---
Addendum entered and electronically signed by Maryse Ray MD 10/16/24 12:36:
-continue Keppra 500 mg BID
-OP neurology follow up(C/T spine MRI, CSF(OCB/MBP).
Original Note:
Today's Communication / Plan
-
.
Subjective/Objective
Subjective Data
Date of Service: October 16, 2024
Neurology follow-up note
PDMP:Clonazepam 1 Mg�90 tabs filled in on 09/15/2024, 45 tabs filled in on 09/02/2024, 08/21/2024.
Labs: WBCs 22.7�14.5, platelets�248, CRP�36.4, normal ESR, normal free T4
CSF(10/15/2024) glucose 82, protein 61.
CSF-HSV/VZV PCRs negative.
Brain MRI w/wo sammi(09/02/2024)
1. Nonenhancing transcortical encephalomalacia in the lateral right temporal lobe and mild encephalomalacia in the lateral right frontal lobe: chronic hemorrhagic transcortical infarcts vs posttraumatic encephalomalacia.
2. Chiari I malformation.
3. Mild white matter disease.
Prior AED: Trileptal, Depakote
Routine EEG(10/16/2024)normal
MAR: Haloperidol 2 mg 10/16/24 11:30, lorazepam 1 mg 10/16/24 08:09, 11:20.
PMH: Epilepsy, congenital amblyopia, right temporal encephalomalacia, SAMMI, cannabis addiction, medication nonadherence
PSH: Ankle surgery
SH:active smoker, has a grown son.
All: gabapentin
ROS: limited due to cooperation/encephalopathy
General: Restrained, intermittently agitated
Cardio: Regular rate . Extremities are without cyanosis or edema.
Neuro:
Mental Status: Awake, oriented to name, , month, 2024. Follows simple requests intermittently. Comprehension is preserved. Slow speech.
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 Limited extraocular movement exam due to cooperation. Blink to threat bilaterally. No facial weakness, hearing preserved. Mild to moderate dysarthria including edentulous.
Motor: Moves all limbs antigravity symmetrically
Reflexes: Limited exam due to cooperation and restraints
Sensory: Limited exam due to poor attention
Coordination: No tremors or myoclonic movements.
Gait: deferred
Assessment and Plan:
I. Multifactorial encephalopathy (postictal, toxic), clinically improved
II. Chronic subcortical bihemispheric white matter signal abnormalities including right temporal encephalomalacia (differential diagnosis includes demyelinating vs vascular vs inflammatory, less likely infectious or neoplastic/paraneoplastic.)
III. Probable focal epilepsy with provoked seizure (fever, off Klonopin, AED)
IV. Chiari I malformation.
-Seizure precautions
-Aspiration precautions.
-No driving for 6 months
-Continue Thiamine. Nicotine patch
-Start Depakote with a plan to wean off Keppra
-eligibility worker and psychiatry consult
-Continue ASA 81mg QD
-I have left a message for Bere evelin Nica Pyle with a request to return my call to obtain collateral history
-DVT prophylaxis.
I personally reviewed all radiology and labs along with past medical records pertinent to current medical problems. Total time spent in patient care is 35 minutes.
Thank you for allowing us to participate in the care of this patient. We will continue to follow. Please do not hesitate to contact us with any questions or concerns.
Objective Data
Vital Signs
Temp Pulse Resp BP Pulse Ox
37.2 C 56 13 105/66 99
10/16/24 05:00 10/16/24 10:00 10/16/24 10:00 10/16/24 10:00 10/16/24 10:00
Lab Results
10/16/24 04:14
10/16/24 04:14
PT 15.4 Sec (11.4-14.6) H 10/16/24 04:14
INR 1.19 10/16/24 04:14
APTT 29.8 Sec (23.4-35.0) 10/16/24 04:14
Sodium 145 mmol/L (135-145) 10/16/24 04:14
Potassium 3.9 mmol/L (3.5-5.1) 10/16/24 04:14
BUN 19 mg/dl (9-20) 10/16/24 04:14
Glucose 98 mg/dl (70-99) 10/16/24 04:14
Calcium 8.9 mg/dl (8.4-10.2) 10/16/24 04:14
Ur Buprenorphine Negative (Negative) 10/15/24 13:49
Patient Allergies
gabapentin [From Neurontin] Allergy (Verified 09/24/24 07:13)
sz
Vital Signs and Labs
-
Vital Signs and Labs:
Vital Signs
Temp Pulse Resp BP Pulse Ox
37.2 C 56 13 105/66 99
10/16/24 05:00 10/16/24 10:00 10/16/24 10:00 10/16/24 10:00 10/16/24 10:00
Lab Results
10/16/24 04:14
10/16/24 04:14
PT 15.4 Sec (11.4-14.6) H 10/16/24 04:14
INR 1.19 10/16/24 04:14
APTT 29.8 Sec (23.4-35.0) 10/16/24 04:14
Sodium 145 mmol/L (135-145) 10/16/24 04:14
Potassium 3.9 mmol/L (3.5-5.1) 10/16/24 04:14
BUN 19 mg/dl (9-20) 10/16/24 04:14
Glucose 98 mg/dl (70-99) 10/16/24 04:14
Calcium 8.9 mg/dl (8.4-10.2) 10/16/24 04:14
Ur Buprenorphine Negative (Negative) 10/15/24 13:49
Medications
-
Medications:
Generic Name Dose Route Start Last Admin
Trade Name Freq PRN Reason Stop Dose Admin
Aspirin 81 mg 10/16/24 08:00 10/16/24 08:14
Aspirin 81 Mg Chewable Tablet PO 11/13/24 07:59 Not Given
DAILY EVERT
Bisacodyl 10 mg 10/15/24 17:06
Bisacodyl 10 Mg Rectal Suppository RECTAL 11/12/24 17:05
[id number] PRN
constipation
Clonazepam 1.5 mg 10/15/24 21:00 10/16/24 08:14
Clonazepam 0.5 Mg Tablet PO 11/12/24 20:59 Not Given
BID EVERT
Heparin Sodium 5,000 units 10/15/24 20:00 10/16/24 08:11
Heparin 5,000 Units/Ml 1 Ml Vial SC 11/12/24 19:59 Not Given
Q12 EVERT
Dexmedetomidine HCl 400 mcg in 100 mls @ 0 mls/hr 10/15/24 20:45 10/16/24 03:59
Precedex IV 100 mls
PER PROTOCOL EVERT Administration
Protocol
Per Protocol
Levetiracetam 500 mg 10/15/24 20:00 10/16/24 08:12
Levetiracetam (100 Mg/Ml) 500 Mg/5 Ml Vial IV 11/12/24 19:59 500 mg
Q12 EVERT Administration
Lorazepam 1 mg 10/15/24 20:00 10/16/24 11:20
Lorazepam 2 Mg/Ml Vial IV 11/12/24 19:59 1 mg
Q4 EVRET Administration
Nicotine 14 mg 10/16/24 08:00 10/16/24 08:09
Nicotine 14 Mg Patch TRANSDERM 11/13/24 07:59 Not Given
DAILY EVERT
Polyethylene Glycol 17 grams 10/15/24 17:06
Polyethylene Glycol Powder 17 Grams Packet PO 11/12/24 17:05
DAILYPRN PRN
constipation
Senna/Docusate Sodium 1 tablet 10/15/24 17:06
Docusate W/Senna (Salud-Colace) Tablet PO 11/12/24 17:05
BIDPRN PRN
constipation
Sodium Chloride 0 flush 10/15/24 18:00
Sodium Chloride 0.9% (Flush) Syringe IV 11/12/24 17:59
PER PROTOCOL EVERT
Sodium Chloride 0 ml 10/15/24 20:00 10/16/24 11:20
Sodium Chloride 0.9% (Preservative Free) 10 Ml Vial IV 11/12/24 19:59 10 ml
PRN PRN Administration
IV Lorazepam dilution
Protocol
Thiamine HCl 100 mg 10/16/24 08:00 10/16/24 08:12
Thiamine (100 Mg/Ml) 2 Ml Vial IV 10/18/24 08:01 100 mg
DAILY EVERT Administration
Home Medications
-
Home Medications
clonazepam 1 mg tablet 1.5 mg PO BID 08/17/24
levetiracetam 500 mg tablet (Keppra) 500 mg PO BID #20 tabs 08/20/24
levetiracetam 1,000 mg tablet (Keppra) 1,000 mg PO HS #30 tabs 09/24/24
Medical Marijuana DAILYPRN PRN anxiety 10/15/24
escitalopram oxalate 10 mg tablet (Lexapro) 10 mg PO DAILY 10/15/24
--- NOTE | 2024-10-16 12:28 | EEG.RPT ---
Electroencephalogram Report
Recording
Date of EE10/16/24
Type of EEG: Routine
Length of EEG recordin minutes
Done with Video Recording: Yes
Patient Status: Inpatient
Recording Conditions: Awake, Drowsy and Asleep
Hyperventilation Performed: No
Photic Stimulation Performed: Yes
Report
LESS THAN 1 HOUR EEG REPORT
LESS THAN 1 HOUR EEG INTERPRETATION:
Unremarkable EEG for age
CLINICAL CORRELATION:
A normal EEG does not rule out a diagnosis of epilepsy. If clinical suspicion for seizure persists, a prolonged recording may be warranted.
Clinical correlation is advised.
METHODS:
A 21 channel digitized electroencephalogram (EEG) was performed using the 10/20 international system of electrode placement and one-lead of ECG recorded. Video was recorded.
ELECTROENCEPHALOGRAPHER IMPRESSION(S):
Quality of study
Good
Background
There was an unremarkable anterior-posterior voltage gradient of alpha frequency.
With eye opening the background activity changed to a low voltage mixture of frequencies.
There were no significant asymmetries of background activity noted. Persyst QEEG analysis was performed.
Sleep
Drowsiness present
Stage I present
Stage 2 present
Photic Stimulation
Produced driving symmetrically in most flash frequencies
ECG
Normal sinus rhythm
--- NOTE | 2024-10-16 13:00 | PTCARENOTE ---
Pt again agitated and screaming at staff, pulling off equipment and wires and mitts. Code purple called again, pt escalating, spitting at and pinching staff, locked neoprene restraints applied, mask placed on face. Stat dose Haldol administered, see
flowsheet. Psychiatrist Dr. Gupta in room to assess competency, plan discussed. CM phone call placed to GOLDIE Porras, see note. Plan in process to discharge this afternoon.
--- NOTE | 2024-10-16 13:20 | CM ---
Addendum entered by Bk Richmond 10/16/24 15:33:
PMNC completed and left with UC.
Addendum entered by Bk Richmond 10/16/24 15:18:
Director of case management requested pt be transported by [facility] for safety.
UC to arrange ambulance transportation [facility] for safety.
CM spoke to pt's girlfriend Enedelia and she expressed her happy feelings that pt is discharged today and she stated she usually drives but she has no money to put on her car. Pt's girlfriend is aware that pt will be transported by S.
Addendum entered by Bk Richmond 10/16/24 14:56:
Discharge order noted.
CM spoke to pt's friend James and he stated that pt has no place to stay in [place] and per James pt lives with his girlfriend in [place].
Pt is aware and he stated he is not going to [place] and he will go to his girlfriend's house at [address] [place] [address], [place] [address].
Per girlfriend, [address] [place] [address] in [place] [address] is pt's mail address only and pt does not live there.
Per psychiatrist, pt will resume IOP at [facility] upon the discharge.
D/C plan: home to girlfriend's house with resumptions of IOP at [facility]
Original Note:
MERLY following re: discharge planing.
Discussed in Rounds, reviewed pt's chart, tried to meet with the pt but pt has been coursing and yelling on everyone who tried to talk to him.
Pt is a 43 year old male, admitted with primary dx of Seizures.
CM spoke to pt's girlfriend Lina who stated she and the pt have been living together for the past 5 years and their relationship were on and off. Pt's girlfriend was mostly focused on her problem during conversation that she has OCD, 'body
disturbing disorder', her mother has Bipolar and psychosis and she last year. It has been very difficult to redirect pt's girlfriend and she was on and on describing her issues. Per girlfriend, pt's father when pt was young,
mother lives in [place], pt has friend James [phone]. Per girlfriend, pt works at [employer] night time. Pt's girlfriend stated that she believes pt has Depression, dealing with anger management, was evaluated by psychiatrist at [facility]
and he takes Klonopin. Again, pt's girlfriend went on and on again on her own psychiatric issues and the conversation completed in a nice possible way.
Psychiatry consult requested.
PCP: pt's girlfriend stated pt has PCP and she just does not remember the name.
Pharmacy: [facility].
D/C plan: uncertain at this time and will depend on pt's progress.
CM will follow with discharge plan updates as hospitalization progresses.
--- NOTE | 2024-10-16 13:41 | CS.PSYCHR ---
Consult Summary - Psychiatry
-
Pt is 43 yo male who presented from home with hx of epilepsy and poorly compliant, brought in by EMS with 4 witnessed seizures. Pt noted to be confused initially, then more agitated/combative. Pt received multiple doses of Ativan. Today pt
agitated about wanting to be released; escalated and Code [employer] called. Pt seen in 4 point restraints, initially asleep, then woke and stated he wanted to rest some more. Pt answered a few questions, then became angry, impatient, began cursing
and berating interviewer. Pt does not show any overt signs of psychosis. No S/H ideation evident. Pt states he needs to return to work. MRI brain shows frontal and temporal areas of encephalomalacia; Neurology recommended outpatient follow-up.
Discussed with nursing staff, attending physician.
Psych hx: reportedly followed at [facility]
SH: employed working overnights at [employer], lives with girlfriend
MSE: in restraints, initially calm, answering questions, then increasingly irritated with conversation, yelling and cursing. No S/H ideation, no overt psychosis. Insight limited
Imp: unspecified depression
R/o personality d/o; R/o impulsivity due to brain injury/epilepsy
Rec: No indication for inpatient psychiatric treatment. Agree with discharge if medically stable. [facility] can [facility] for Outpatient follow-up; cont with PCP for med mgt
--- NOTE | 2024-10-16 14:55 | PTCARENOTE ---
Discharge paperwork completed and printed, awaiting wheelchair van set up by transport. Pt will not be permitted to stay over per rn managed care. CM aware and in contact with Kelsy Porras and friend James, see note.
--- NOTE | 2024-10-16 14:58 | W.PN.UPDATE ---
Update Note
Progress Note Update
Dr. Lior Mota spoke with Dr. Gonzalez over the phone. Patient is medically stable for discharge from psychiatry standpoint.
--- NOTE | 2024-10-16 17:20 | W.BEHV.VIO ---
Threatening Behavior
-
Patient has exhibited threatening behavior?: Yes
Date of threatening behavior? (updated with each occurrence): 10/16/24
--- NOTE | 2024-10-16 19:43 | W.DCSUMMARY ---
Addendum entered and electronically signed by Carson Gonzalez MD 10/17/24 15:39:
Read Reviewed and agree.
Marcelo Gonzalez MD
Original Note:
Documented by User: Abril Schmidt MD, Resident 10/17/24 03:36
Discharge Summary
Discharge Data
Date of Admission: 10/15/24
Date of Discharge: 10/16/24
-
Pending Results: No
Additional Pending Results:
Patient is a 43 year old male with history of epilepsy and status epilepticus, who presented to ED after 4 witnessed seizures at home. Girlfriend stated missed doses of scheduled Keppra and Klonopin. While undergoing transport with EMS, he had 3
further witnessed seizures. He was post-ictal after seizures. No recent trauma or illness. On arrival, he was febrile with elevated WBC, CK and lactic acid level. Glucose and electrolytes WNL. U/A did not show any pyuria. LP normal. UDS was
positive only for THC (neg for BZD). CT head did not show any abnormality. Patient remained seizure-free in ED but was admitted for further evaluation and workup of fever source.
Problem list:
1. Witnessed recurrent seizures outside of hospital:
Patient remained seizure-free while admitted. Meningitis, influneza, and covid pcr were negative. CSF culture did not show any organisms on gram stain. Patient was initially placed on empiric Acyclovir but this was discontinued after HSV/VZV PCR
came back negative. Leukocytosis improved during stay. Neuro and ID were consulted. EEG was obtained which was unremarkable. Per ID, fever and leukocytosis likely related to recent seizures.
2. Agitation and combative behavior
Patient became very combative and was transferred to ICU. 4p restraints were placed. Precedex drip and Haldol were given for increased agitation. Code purple was called multiple times. Psychiatry was consulted who did not recommend inpatient
psychiatric treatment and cleared patient for discharge.
Changes in home meds:
No changes were made to anti-epileptic meds. Neuro recommended starting Aspirin.
MRI brain (09/12)
1. Moderate transcortical encephalomalacia in the lateral right temporal lobe and mild encephalomalacia in the lateral right frontal lobe. Diagnostic possibilities are (1) chronic hemorrhagic transcortical infarcts or (2) chronic traumatic brain
injury.
2. Chiari I malformation.
3. Mild white matter disease
Discharge Plan
-
Patient Disposition: Home (Routine Discharge)
Discharge Diagnosis/Procedures: Seizure disorder possibly status epilepticus
Condition: Fair
Diet: No restrictions and Regular
Activity: No restrictions
Driving Restrictions: no driving for six months
Bathing Restrictions: None
Activity Restrictions/Additional Instructions:
Outpatient neurology follow-up for spine MRI and CSF analysis.
Referrals:
Maryse Ray MD [Active] -
Oracio Fisher MD, Resident [Family Practice Resident Year1] - in less than 1 week
UNKNOWN - PT DOES,NOT KNOW [Family Provider] -
Prescriptions:
New
aspirin 81 mg Tablet,Chewable
81 mg PO DAILY Qty: 30 0RF
Continued
clonazepam 1 mg tablet
1.5 mg PO BID
Medical Marijuana
DAILYPRN PRN (Reason: anxiety)
escitalopram oxalate [Lexapro] 10 mg Tablet
10 mg PO DAILY
No Action
levetiracetam [Keppra] 500 mg tablet
500 mg PO BID
levetiracetam [Keppra] 1,000 mg tablet
1,000 mg PO HS
Discharge Orders:
Discharge Patient (As Directed); Ordered 10/16/24
Ordered By: Abril Schmidt
Discharge Date and Time
Discharge Date/Time: 10/16/24 16:58
Print Language: GUATEMALAN

Documented by User: Carson Gonzalez MD 10/17/24 15:38
Discharge Summary
Discharge Data
Date of Admission: 10/15/24
Date of Discharge: 10/17/24
Discharge Plan
-
Patient Disposition: Home (Routine Discharge)
Discharge Diagnosis/Procedures: Seizure disorder possibly status epilepticus
Condition: Fair
Diet: No restrictions and Regular
Activity: No restrictions
Driving Restrictions: no driving for six months
Bathing Restrictions: None
Activity Restrictions/Additional Instructions:
Outpatient neurology follow-up for spine MRI and CSF analysis.
Referrals:
Maryse Ray MD [Active] -
Oracio Fisher MD, Resident [Family Practice Resident Year1] - in less than 1 week
UNKNOWN - PT DOES,NOT KNOW [Family Provider] -
Prescriptions:
New
aspirin 81 mg Tablet,Chewable
81 mg PO DAILY Qty: 30 0RF
Continued
clonazepam 1 mg tablet
1.5 mg PO BID
Medical Marijuana
DAILYPRN PRN (Reason: anxiety)
escitalopram oxalate [Lexapro] 10 mg Tablet
10 mg PO DAILY
No Action
levetiracetam [Keppra] 500 mg tablet
500 mg PO BID
levetiracetam [Keppra] 1,000 mg tablet
1,000 mg PO HS
Discharge Orders:
Discharge Patient (As Directed); Ordered 10/16/24
Ordered By: Abril Schmidt
Discharge Date and Time
Discharge Date/Time: 10/16/24 16:58
Print Language: GUATEMALAN
[2024-10-17 14:46] LABS: Angiotensin-1-converting Enzym 26 U/L (16-85)
[2024-10-17 15:41] LABS: Keppra (Levetiracetam) 8 ug/mL (10-40)
[2024-10-18 16:26] LABS: Lyme Antibody Screen, EIA Negative (Negative)
[2024-10-18 19:20] LABS: Angiotensin-1- Converting, CSF 1.5 U/L (0.0-2.5)
== END 2024-10-16 16:58 | disposition home or self-care (01) | DRG 100 ==
LOC: ICU 16:26
PROVIDERS: Physician Assistant; ADMITTING PHYSICIAN Internal Medicine; ATTENDING PHYSICIAN Family Medicine; CONSULT PHYSICIAN Internal Medicine; CONSULT PHYSICIAN Psychiatry & Neurology Neurology; EMERGENCY PHYSICIAN Emergency Medicine; OTHER PHYSICIAN Psychiatry & Neurology Psychiatry; OTHER PHYSICIAN Student in an Organized Health Care Education/Training Program
DX: G40.101 Localization-related (focal) (partial) symptomatic epilepsy and epileptic syndromes with simple partial seizures, not intractable, with status epilepticus (principal); G92.8 Other toxic encephalopathy; G93.5 Compression of brain; E87.20 Acidosis, unspecified; F13.239 Sedative, hypnotic or anxiolytic dependence with withdrawal, unspecified; G93.89 Other specified disorders of brain; Z91.148 Patient's other noncompliance with medication regimen for other reason; F32.A Depression, unspecified; F41.9 Anxiety disorder, unspecified; Z78.1 Physical restraint status; F12.20 Cannabis dependence, uncomplicated; F17.200 Nicotine dependence, unspecified, uncomplicated; Z11.52 Encounter for screening for COVID-19; R45.6 Violent behavior; R45.1 Restlessness and agitation
CPT/HCPCS: 62270; 70450; 80048; 80053; 80177; 80306; 81003; 81015; 82077; 82164; 82550; 82945; 83605; 83735; 84157; 84439; 84443; 85025; 85027; 85610; 85652; 85730; 86140; 86618; 87015; 87040; 87070; 87205; 87483; 87502; 87811; 89051; 95816; 96361; 96374; 96375; 96376; 99152; 99153; 99291

== ENCOUNTER 2024-10-24 18:48 | Emergency (ER) | payer OTHER, SELFPAY ==
--- NOTE | 2024-10-24 18:51 | ED.GENMED ---
History of Present Illness
General
Chief Complaint: Seizure
Time Seen by Provider: 10/24/24 18:51
History of Present Illness
History of Present Illness:
TIME OF INITIAL ENCOUNTER: 7 PM
HPI: The patient was in police custody earlier today when he had a brief seizure then had another seizure shortly thereafter. He has a known seizure disorder. He has been here several times related to breakthrough seizures. He states that he did
not have any Klonopin or Keppra today. He states his girlfriend took his Keppra. The patient is not aware that he had a seizure.
EXAM:
GENERAL: The patient appears just slightly postictal/slightly confused
HEENT: Poor dentition, no evidence of tongue bite elizabeth
CARDIOVASCULAR: No murmurs, normal heart rate, regular rhythm, No chest wall tenderness
PULMONARY: No respiratory distress, breath sounds are clear and equal
ABDOMEN: Soft with no peritoneal signs, no tenderness
NEUROLOGIC: Good strength all extremities, no coordination deficits
PSYCHIATRIC: The patient appears somewhat confused, he is moving all extremities equally, he is interactive with examination and speaking without difficulty however he does have trouble answering questions accurately
EXTREMITIES: Nontender, no edema, moves all extremities equally
SKIN: No rash, no lesions
NUMBER AND COMPLEXITY OF PROBLEMS ADDRESSED AT THE ENCOUNTER
� Chronic conditions affecting care: Anxiety/depression, seizures
� Acute Exacerbation and/or Progression of Chronic Illness: This is an acute problem
� Differential Diagnosis includes: Breakthrough seizure, missed medication
AMOUNT AND/OR COMPLEXITY OF DATA TO BE REVIEWED AND ANALYZED
� I performed an independent evaluation of and my interpretation is:
EKG:
CT:
X-rays:
Laboratory Studies: White count 13.2, hemoglobin normal, chemistries unremarkable and bicarb normal, glucose 105. Leukocytosis is improved compared to when he was here October 15.
Other:
� Review of other/old records: I reviewed records, the patient was admitted here nearly 10 days ago after 4 witnessed seizures at home and at that time the patient missed scheduled doses of Keppra and Klonopin�at that time the
patient had [address] head was negative. UDS was positive only for marijuana, the patient noted normal LP. The patient remained seizure-free while admitted. EEG was reportedly unremarkable. The patient did have agitation
and combative behavior while in the ED and was on a Precedex/Haldol drip and was also seen and cleared by psychiatry. The patient was also seen for breakthrough seizures twice in July and once last month.
� Clinical information was obtained by an independent historian: I spoke to police sergeant prec[employer] at bedside
� Prescriptions/Medications Considered but not given:
� Further testing considered but not performed: Considered neuroimaging however the patient's presentation is more consistent with a breakthrough seizure
RISK OF COMPLICATIONS AND/OR MORBIDITY OR MORTALITY OF PATIENT MANAGEMENT
� Social determinants of health affecting care: Is in police custody
� Discussion with other providers:
� Escalation of care including admission/observation vs risk of discharge considered: Discharge instruction from last admission indicated the patient takes 500 mg of Keppra twice daily and 1000 mg of Keppra at night. He states
he did not take his medications today and states that his girlfriend took his medications.
ANY OTHER UPDATES:
We did give patient both IV Keppra and IV Ativan tonight to help prevent further seizure. I gave paper prescriptions for Keppra and clonazepam.
Past History
Past History
ED Past Medical History: Seizures and Psychiatric
ED Past Surgical History: Orthopedic
Patient has exhibited threatening behavior?: Yes
Date of threatening behavior? (updated with each occurrence): 10/16/24
Social History
Tobacco: Non-smoker
Alcohol: None
Drug: None
Personal: Partner
Living: with family
Employment: Not employed
Phy Exam
Physical Exam
Physical Exam:
See HPI
Course
Orders/Labs/Results
Orders:
Orders
10/24/24 18:58
Levetiracetam Injectable [Keppra] 1,500 mg IV NOW STA
Lorazepam [Ativan] 1 mg IV NOW STA
10/24/24 19:11
Complete Blood Count/With Diff Urgent
Comprehensive Metabolic Panel Urgent
Abnormal Lab Results
10/24/24 10/24/24
18:58 19:11
WBC 13.2 H 10^3/uL
(4.8-10.8)
RBC 4.53 L 10^6/uL
(4.70-6.10)
MCV 97.1 H fL
(80.0-94.0)
MCH 33.8 H pg
(27.0-31.0)
MPV 10.7 H fL
(7.4-10.4)
Abs Immat Gran (auto) 0.1 H 10^3/uL
(0-0.05)
Absolute Neuts (auto) 10.6 H 10^3/uL
(1.4-6.5)
Absolute Monos (auto) 0.9 H 10^3/uL
(0.1-0.6)
Neutrophils % 80.1 H %
(42.2-75.2)
Lymphocytes % 12.0 L %
(20.5-51.1)
Creatinine 0.6 L mg/dL
(0.7-1.3)
Glucose 105 H mg/dl
(70-99)
Albumin 5.2 H g/dl
(3.5-5.0)
POC Glucose 116 H mg/dl
(70-99)
10/24/24 19:11
10/24/24 19:11
Vital Signs
Initial and Last Documented VS:
Initial Vital Signs
Temp Pulse Resp BP Pulse Ox
37.4 C 72 13 163/117 99
10/24/24 18:53 10/24/24 18:53 10/24/24 18:53 10/24/24 18:53 10/24/24 18:53
Last Documented Vital Signs
Temp Pulse Resp BP Pulse Ox
37.4 C 78 14 152/99 99
10/24/24 18:53 10/24/24 19:39 10/24/24 19:39 10/24/24 19:39 10/24/24 19:39
*Critical Care Note
Total Time (30-74mins, 75-104mins- exclusive of procedures): Not Applicable
ED Attending Note
-
Portions of this chart may have been created with voice recognition software.� Occasional wrong word or��sound alike� substitutions may have occurred due to the inherent limitations of voice recognition software.
Discharge Plan
Departure
Patient Disposition: Senior Care
Date of Disposition: 10/24/24
Time of Disposition: 19:44
Discharge Problem:
Breakthrough seizure
Prescriptions:
New
levetiracetam [Keppra] 1,000 mg tablet
1,000 mg PO HS Qty: 30 0RF
levetiracetam [Keppra] 500 mg tablet
500 mg PO BID Qty: 60 0RF
clonazepam 1 mg tablet
1.5 mg PO BID Qty: 30 0RF
No Action
clonazepam 1 mg tablet
1.5 mg PO BID
Medical Marijuana
DAILYPRN PRN (Reason: anxiety)
escitalopram oxalate [Lexapro] 10 mg Tablet
10 mg PO DAILY
aspirin 81 mg Tablet,Chewable
81 mg PO DAILY Qty: 30 0RF
levetiracetam [Keppra] 500 mg tablet
500 mg PO BID
levetiracetam [Keppra] 1,000 mg tablet
1,000 mg PO HS
Referrals:
UNKNOWN - PT DOES,NOT KNOW [Family Provider] -
Activity Restrictions/Additional Instructions:
I reviewed the last discharge summary. At that time, it is listed that you were on 500 mg of Keppra twice a day with an additional 1000 mg tablet at nighttime (500 mg in the morning and 1500 mg in the evening). We gave you a 1500 mg dose of Keppra
today and we also gave Ativan 1 mg. I gave prescriptions for Keppra and clonazepam. It is important for him to continue these medications in order to help prevent seizure recurrence. I feel that patient is medically cleared for incarceration.
Interventions
Interventions:
*Risk Screen - Suicide Last Done: 10/24/24 18:53
*General Assessment Last Done: 10/24/24 18:53
*Neglect/Abuse Screening Last Done: 10/24/24 18:53
ED- Fall Risk Assessment Last Done: 10/24/24 20:03
*ED COVID-19 Vaccine History Last Done: 10/24/24 18:53
*Nursing Disposition Last Done: 10/24/24 20:03
ED- Neurological Assessment Last Done: 10/24/24 19:25
ED- Pulmonary Assessment Last Done: 10/24/24 19:27
Discharge Date and Time
Discharge Date/Time: 10/24/24 20:11
Print Language: TANZANIAN
[2024-10-24 18:53] VITALS: BP 163/117
[2024-10-24 18:55] VITALS: BP 163/117
[2024-10-24 19:00] LABS: Glucose - Point of Care 116 mg/dl (70-99)
[2024-10-24] MEDS: ATIVAN 1 MG IV (19:09)
[2024-10-24] MEDS: KEPPRA 1500 MG IV (19:10)
[2024-10-24 19:23] LABS: % Basophils 0.3 % (0-2); % Eosinophils 0.5 % (0-6); % Immature Granulocytes 0.4 % (0-0.5); % Monocytes 6.7 % (1.7-9.3); % Neutrophils 80.1 % (42.2-75.2); Absolute Eosinophils 0.1 10^3/uL (0-0.7); Absolute Immature Granulocytes 0.1 10^3/uL (0-0.05); Absolute Lymphocytes 1.6 10^3/uL (1.2-3.4); Absolute Monocytes 0.9 10^3/uL (0.1-0.6); Absolute Neutrophils 10.6 10^3/uL (1.4-6.5); Hemoglobin 15.3 g/dL (13.0-18.0); Mean Corp Hgb Conc. 34.8 g/dL (33.0-37.0); Mean Corpuscular Hgb 33.8 pg (27.0-31.0); Mean Corpuscular Volume 97.1 fL (80.0-94.0); Mean Platelet Volume 10.7 fL (7.4-10.4); Nucleated Red Blood Cells % 0 % (-); Platelet Count 235 10^3/uL (130-400); Red Blood Cell Count 4.53 10^6/uL (4.70-6.10); White Blood Cell Count 13.2 10^3/uL (4.8-10.8)
[2024-10-24 19:38] LABS: ALT (SGPT) 37 U/L (0-50); AST (SGOT) 22 U/L (17-59); Albumin 5.2 g/dl (3.5-5.0); Alkaline Phosphatase 60 U/L (38-126); Blood Urea Nitrogen 19 mg/dl (9-20); Calcium 9.9 mg/dl (8.4-10.2); Carbon Dioxide 26 mmol/L (22-30); Chloride 99 mmol/L (98-107); Glucose 105 mg/dl (70-99); Potassium 4.6 mmol/L (3.5-5.1); Sodium 138 mmol/L (135-145); Total Bilirubin 0.6 mg/dl (0.2-1.3); Total Protein 7.5 g/dl (6.3-8.2); eGFR > 60.00
[2024-10-24 19:39] VITALS: BP 152/99
== END 2024-10-24 20:11 ==
LOC: EMR 18:48
PROVIDERS: EMERGENCY PHYSICIAN Emergency Medicine
DX: G40.909 Epilepsy, unspecified, not intractable, without status epilepticus (principal); Z79.899 Other long term (current) drug therapy
CPT/HCPCS: 99283; 96374; 96375; 80053; 82962; 85025